=== PATIENT | male | born 1955 | race Caucasian/White ===

== ENCOUNTER 2023-11-18 21:22 | Emergency (ER) | payer MEDICARE, OTHER, SELFPAY ==
[2023-11-18 21:22] VITALS: BP 143/79; PULSE 60; RESP 16; TEMP 36.8; O2SAT 95; BMI 31.7
--- NOTE | 2023-11-18 21:37 | CT_ITS ---
PROCEDURE INFORMATION: Exam: CT Head Without Contrast Exam date and time: 11/18/2023 10:26 PM Age: 68 years old Clinical indication: Injury or trauma; Fall; Other: Confusion TECHNIQUE: Imaging protocol: Computed tomography of the head without contrast. Radiation optimization: All CT scans at this facility use at least one of these dose optimization techniques: automated exposure control; mA and/or kV adjustment per patient size (includes targeted exams where dose is matched to clinical indication); or iterative reconstruction. COMPARISON: No relevant prior studies available. FINDINGS: Limitations: Patient motion. Brain: Age-related volume loss. Decreased attenuation of the supratentorial white matter is likely secondary to chronic microvascular ischemia. There is bilateral frontal lobe and left temporal lobe encephalomalacia, likely posttraumatic. Small chronic right parietal lobe infarct. No acute intracranial hemorrhage. No midline shift or significant intracranial mass effect. Chronic lacunar infarct versus prominent perivascular space at the left lentiform nucleus. Cerebral ventricles: Ventriculomegaly is commensurate for degree of volume loss. Paranasal sinuses: Mild paranasal sinus disease. Mastoid air cells: Mild partial opacification of the bilateral mastoid air cells. Bones: Chronic nasal bone fractures. No acute calvarial fracture. Soft tissues: Unremarkable. IMPRESSION: No acute intracranial abnormality.
--- NOTE | 2023-11-18 21:51 | ED_ITS ---
Discharge Plan Disposition Patient Disposition: Home, Self-Care Chief Complaint: Fall Referrals Follow up/Referrals: Teri Matos APRN [Primary Care Provider] - See instructions Activity Restrictions/Add. Instructions Additional Instructions/Restrictions: You fell and hit your head today, you have a concussion. Fortunately you do not have any bleeding on your brain. You may have some headache over the next few days, please take Tylenol and ibuprofen for this. If your headache is severe or if new or worsening symptoms please do not hesitate to return to the emergency department. Clinical Impressions Clinical Impression: Concussion, Fall Discharge ED Provider: Esdras Alexander General Adult HPI General Chief complaint: Fall Stated complaint: fall Time Seen by Provider: 11/18/23 21:33 Mode of Arrival: EMS Source of Information: Patient and EMS Limitations: No Limitations Description of Symptoms (Recalled from ER Triage Doc. by RN): Pt presents to ED via EMS for an unwitnessed fall. Another resident at [facility] states he lost his footing and may have hit his head. Pt has no visible bumps or bruises. Pt has no complaints at this time. Pt is A&O*3 and that is his basaeline. History of Present Illness HPI narrative: Patient is a 68-year-old male who presents emergency department for evaluation of traumatic injury sustained in a fall. Patient reportedly fell forward after losing his footing. He states he knocked himself out. He has no acute complaints upon arrival. No anticoagulants. Related Data Allergies Allergy/AdvReac Type Severity Reaction Status Date / Time No Known Allergies Allergy Verified 11/18/23 22:35 [facility] Disclaimer: The information contained in this section may have been updated after the patient was seen, as this information can be updated by other users. Social History Smoking Status: Smoker, status unknown alcohol intake: never current occupational status: other Travel in the last 8 weeks: None ROS Obtained: Yes Systems reviewed as appropriate & no additional complaints except as documented Physical Exam General General appearance: alert and in no apparent distress Head Head exam: atraumatic and normocephalic Eye Eye exam: Present PERRL and EOMI ENT ENT exam: Present mucous membranes moist Neck Neck exam: Present normal inspection and full ROM; Absent tenderness Chest Chest inspection: Present normal inspection and symmetric chest wall rise Respiratory Respiratory exam: Present normal lung sounds bilaterally; Absent respiratory distress Cardiovascular Cardiovascular exam: Present regular rate and normal rhythm Abdominal Exam Abdominal exam: Present soft Extremities Exam Extremities exam: Present normal inspection Neurological Exam Neurological exam: Present alert and CN II-XII intact; Absent motor sensory deficit Psychiatric Psychiatric exam: Present normal affect Skin Skin exam: Present warm and dry Medical Decision Making Wilman Inquiry Pt receiving controlled substance: No Vital Signs: 11/18/23 21:22 11/18/23 22:01 Temperature 98.2 F Temperature Source Oral Pulse Rate 57 L Pulse Rate [Left] 60 Respiratory Rate 16 Blood Pressure 115/76 Blood Pressure [Right Arm] 143/79 H Blood Pressure Mean 95 Blood Pressure Mean [Right Arm] 100 02 Sat by Pulse Oximetry 95 95 Oxygen Delivery Method Room Air Room Air Orders (Tests/Meds): ORDERS Category Date Time Status CT head/brain wo con Stat Cat Scan 11/18/23 21:37 Completed Medical Decision Narrative: In summary patient is a 68-year-old male past medical history described above who presents emergency department for evaluation of traumatic injury sustained in a fall. Patient is hemodynamically stable nontoxic-appearing upon arrival, afebrile. No anticoagulants. Clues intracranial hemorrhage, concussion, among others. C-spine cleared clinically per Nexus criteria. Trauma survey will be conducted with noncontrasted CT scan of the head. Based on history and physical exam other CT imaging of the thorax, neck, extremities was considered but will be deferred. CT imaging informally visualized by me, no acute large hemorrhage. Formal read shows no acute cranial abnormality. Upon repeat evaluation patient was well-appearing, ambulatory bedside and is appropriate for discharge at this time. Critical Care Critical Care Time Critical Care Time: No
[2023-11-18 22:01] VITALS: BP 115/76; PULSE 57; O2SAT 95
--- NOTE | 2023-11-18 23:03 | PC.NURSE ---
Ambulated pt, pt walked without any issues. Doctor has been notified
[2023-11-18 23:18] VITALS: BP 157/86; PULSE 54; RESP 16; TEMP 36.6; O2SAT 98
--- NOTE | 2023-11-18 23:19 | PC.NURSE ---
Spoke with staff at [facility] to notify them that this patient is ready ro be discharged.
== END 2023-11-18 23:35 | disposition home or self-care (01) ==
PROVIDERS: Emergency Provider Emergency Medicine; PCP Nurse Practitioner Family
DX: S06.0X0A Concussion without loss of consciousness, initial encounter (principal); W19.XXXA Unspecified fall, initial encounter
CPT/HCPCS: 70450; 99284

== ENCOUNTER 2024-01-10 18:00 | Emergency (ER) | payer MEDICARE, OTHER, SELFPAY ==
[2024-01-10 18:00] VITALS: BP 119/71; PULSE 62; RESP 16; TEMP 36.8; O2SAT 93; BMI 24.4
--- NOTE | 2024-01-10 18:04 | CT_ITS ---
PROCEDURE INFORMATION: Exam: CT Cervical Spine Without Contrast Exam date and time: 01/10/2024 7:04 PM Age: 68 years old Clinical indication: Injury or trauma; Fall TECHNIQUE: Imaging protocol: Computed tomography of the cervical spine without contrast. Radiation optimization: All CT scans at this facility use at least one of these dose optimization techniques: automated exposure control; mA and/or kV adjustment per patient size (includes targeted exams where dose is matched to clinical indication); or iterative reconstruction. COMPARISON: CT HEAD/BRAIN WO CON 01/10/2024 7:04 PM FINDINGS: Limitations: Patient motion. Bones: Nonspecific straightening. Trace retrolisthesis of C2 on C3. Vertebral body heights are preserved. Moderate degenerative change about the dens. Moderate prevertebral osteophytosis. There are facet joint degenerative changes. Multilevel disc space narrowing with degenerative endplate change. No acute cervical spine fracture. Multilevel cervical central and foraminal stenoses including high-grade stenoses. Lungs: Lung apices are normal. Pleural spaces: No visible pneumothorax. Vasculature: Vascular calcification. Soft tissues: Unremarkable. IMPRESSION: No acute osseous abnormality.
--- NOTE | 2024-01-10 18:04 | HMH.EDGENADL ---
Discharge Plan Disposition Patient Disposition: Xfer Other Condition: Good Prescriptions Prescriptions: New sulfamethoxazole-trimethoprim [Bactrim DS] 800-160 mg tablet 1 tab PO BID 5 Days Qty: 10 0RF Referrals Follow up/Referrals: Teri Matos APRN [Primary Care Provider] - See instructions Clinical Impressions Clinical Impression: Acute UTI Fall Qualifiers: Encounter type: initial encounter Qualified Code(s): W19.XXXA - Unspecified fall, initial encounter Print Language Print Language: [place] Island[place] Discharge ED Provider: Jaspreet Pizano General Adult HPI <ONIEL Cabrales - Last Filed: 01/10/24 20:50> General Chief complaint: Fall Stated complaint: Fall Time Seen by Provider: 01/10/24 18:04 History of Present Illness HPI narrative: Patient presents for evaluation of a fall. Patient apparently has fallen twice today for unexplained reasons. He is a resident of [facility] which is an independent living facility. Patient himself is a poor historian and cannot give any meaningful history as to the events that occurred today. I do not know what his mental baseline is. He is not on any blood thinners and denies any chest pain head pain face pain shortness of breath fever chills hemoptysis hematochezia melena nausea vomiting diarrhea. Related Data Previous Rx's ?Medication ?Instructions ?Recorded sulfamethoxazole 800 1 tab PO BID 5 days #10 tabs 01/10/24 mg-trimethoprim 160 mg tablet (Bactrim DS) Allergies Allergy/AdvReac Type Severity Reaction Status Date / Time No Known Allergies Allergy Verified 11/18/23 22:35 PFSH <ONIEL Cabrales - Last Filed: 01/10/24 20:50> [facility] Disclaimer: The information contained in this section may have been updated after the patient was seen, as this information can be updated by other users. Social History (Updated 11/18/23 @ 22:56 by Esdras Alexander MD) Smoking Status: Unknown if ever smoked alcohol intake: never current occupational status: other Travel in the last 8 weeks: None <ONIEL Cabrales - Last Filed: 01/10/24 20:50> ROS Obtained: Yes Systems reviewed as appropriate & no additional complaints except as documented Physical Exam <ONIEL Cabrales - Last Filed: 01/10/24 20:50> General General appearance: alert and in no apparent distress Head Head exam: atraumatic and normal inspection Eye Eye exam: Present normal appearance, PERRL and EOMI ENT ENT exam: Present normal exam and normal oropharynx Neck Neck exam: Present normal inspection and full ROM; Absent tenderness Chest Chest inspection: Present normal inspection and symmetric chest wall rise; Absent tenderness Respiratory Respiratory exam: Present normal lung sounds bilaterally Cardiovascular Cardiovascular exam: Present regular rate and normal rhythm Abdominal Exam Abdominal exam: Present soft and normal bowel sounds; Absent tenderness, guarding or rebound Extremities Exam Extremities exam: Present normal inspection and full ROM Back Exam Back exam: Present normal inspection and full ROM; Absent tenderness Neurological Exam Neurological exam: Present alert; Absent oriented X3 (Patient is responsive but mumbles somewhat incoherent answers) Psychiatric Psychiatric exam: Present normal affect and normal mood Skin Skin exam: Present warm, dry and normal color Medical Decision Making <ONIEL Cabrales - Last Filed: 01/10/24 20:50> Medical Records Medical records reviewed: Yes I reviewed the patient's medical records. Wilman Inquiry Pt receiving controlled substance: No Vital Signs: 01/10/24 18:00 01/10/24 18:26 01/10/24 18:31 Temperature 98.2 F Temperature Source Oral Pulse Rate 59 L Pulse Rate [Radial] 62 Respiratory Rate 16 Blood Pressure 113/63 Blood Pressure [Right Arm] 119/71 Blood Pressure Mean 79 Blood Pressure Mean [Right Arm] 87 Blood Pressure Source [Right Arm] Automatic Cuff Blood Pressure Position [Right Arm]
--- NOTE | 2024-01-10 18:05 | CT_ITS ---
PROCEDURE INFORMATION: Exam: CT Head Without Contrast Exam date and time: 01/10/2024 7:04 PM Age: 68 years old Clinical indication: Injury or trauma; Fall TECHNIQUE: Imaging protocol: Computed tomography of the head without contrast. Radiation optimization: All CT scans at this facility use at least one of these dose optimization techniques: automated exposure control; mA and/or kV adjustment per patient size (includes targeted exams where dose is matched to clinical indication); or iterative reconstruction. COMPARISON: CT HEAD/BRAIN WO CON 11/18/2023 10:26 PM FINDINGS: Brain: Age-related volume loss. Decreased attenuation of the supratentorial white matter is likely secondary to chronic microvascular ischemia. There is encephalomalacia involving the bilateral anterior/inferior frontal lobes and the left temporal lobe, likely posttraumatic. Chronic right parietal lobe infarct. No acute intracranial hemorrhage, midline shift or significant intracranial mass effect. Chronic lacunar infarct at the left basal ganglia. Cerebral ventricles: Ventriculomegaly is commensurate for degree of volume loss. Paranasal sinuses: Mild paranasal sinus disease. Mastoid air cells: Partial opacification of the [id number]-left mastoid air cells. Bones: Unremarkable. No acute fracture. Soft tissues: Unremarkable. IMPRESSION: No acute intracranial abnormality.
[2024-01-10 18:26] VITALS: PULSE 59; O2SAT 91
[2024-01-10 18:31] VITALS: BP 113/63
[2024-01-10 18:32] LABS: Albumin Level 3.9 g/dl (3.5-5.0); Chloride 105 mmol/L (98-107); Potassium 4.2 mmoL/L (3.5-5.1); Sodium 139 mmol/L (136-145)
[2024-01-10 18:34] LABS: Blood Urea Nitrogen 24 mg/dl (9-20); Creatinine Clearance Estimated 62 mL/min (50-200); Estimated Glomerular Filt Rate 55 ml/min (>60); GFR (African American) 66 ML/MIN (>60); Hemoglobin 14.3 g/dL (14.1-18.0); Mean Corpuscular Hemoglobin 29.7 pg (27.0-31.2); Mean Corpuscular Volume 93.6 fl (80-94); Red Blood Count 4.81 M/mm3 (4.60-6.20); White Blood Count 2.9 K/mm3 (4.8-10.8)
[2024-01-10 18:35] LABS: Alanine Aminotransferase 32 U/L (12-78); Albumin/Globulin Ratio 1.6 (1.1-1.8); Alkaline Phosphatase 64 U/L (38-126); Anion Gap 9.2 mEq/L (5-15); Aspartate Amino Transferase 39 U/L (17-59); Bilirubin,Total 0.9 mg/dl (0.2-1.3); Calcium 8.3 mg/dl (8.4-10.2); Carbon Dioxide 29 mmol/L (22.0-30.0); Eosinophils % 0.8 % (0.1-12.0); Globulin 2.5 g/dL (1.3-3.2); Glucose 133 mg/dl (74-100); Lymphocytes % 20.2 % (10-50); Mean Corpuscular HGB Conc 31.7 g/dL (31.8-35.4); Mean Platelet Volume 9.1 fl (7.4-10.4); Monocytes % 10.7 % (1.7-9.3); Neutrophils % 66.8 % (37.0-80.0); Platelet Count 66 K/mm3 (142-424); Red Cell Distribution Width 15.4 % (11.5-17.5); Total Protein,Serum 6.4 g/dl (6.3-8.2)
[2024-01-10 18:36] LABS: Basophils % 0.2 % (0.1-2.0); Lymphocytes # 0.6 K/mm3 (0.7-4.5); Monocytes # 0.3 K/mm3 (0.1-1.0); Neutrophils # 1.9 K/mm3 (1.8-7.8)
--- NOTE | 2024-01-10 18:58 | PC.NURSE ---
Pt out of room with Rad to CT
[2024-01-10 19:56] LABS: Microscopic, Urine URINE MICROSCOPIC (MICROSCOPIC)
[2024-01-10 20:04] LABS: Appearance,Urine CLEAR (Clear); Blood, Urine TRACE-I (Negative); Color,Urine YELLOW (Yellow); Glucose,Urine (UA) 3+ (Negative); Ketones,Urine Negative (Negative); Leukocyte Esterase,Urine Negative (Negative); Nitrate,Urine Negative (Negative); PH,Urine 5.5 (5.0-8.5); Protein,Urine Negative (Negative); Specific Gravity, Urine 1.015 (1.005-1.030)
[2024-01-10 20:07] LABS: Bilirubin,Urine Negative (Negative)
[2024-01-10 20:16] LABS: Bacteria,Urine 1+ /lpf; WBC,Urine Occasional #/hpf (0-3)
[2024-01-10 20:17] LABS: Mucus,Urine 1+ /lpf
--- NOTE | 2024-01-10 21:01 | PC.NURSE ---
Contacted Mariano Motta in regards to this patient being discharged and ready for picker tender
[2024-01-10 21:05] VITALS: BP 125/98; PULSE 61; RESP 18; TEMP 36.6; O2SAT 98
== END 2024-01-10 21:56 | disposition other institution (70) ==
PROVIDERS: Physician Assistant; Emergency Provider Emergency Medicine; PCP Nurse Practitioner Family
DX: U07.1 COVID-19 (principal); N39.0 Urinary tract infection, site not specified; W19.XXXA Unspecified fall, initial encounter
CPT/HCPCS: 70450; 72125; 80053; 81001; 85025; 87635; 96361; 96374; 99285; J0131; J7120

== ENCOUNTER 2024-02-03 18:46 | Emergency (ER) | payer MEDICARE, OTHER, SELFPAY ==
[2024-02-03 18:46] VITALS: BP 151/81; PULSE 56; RESP 17; TEMP 36.6; O2SAT 98; BMI 25.7
--- NOTE | 2024-02-03 18:56 | ED_ITS ---
<Statement entered by Sofia Hong DO - 02/03/24 23:44> I was consulted by the SIERRA, and we discussed the complexity of the problems being addressed. I approved the treatment and management plan for this patient's care in the emergency department, thus performing a substantive portion of the medical decision making. Sofia Hong DO Discharge Plan Disposition Chief Complaint: Recheck/Abnormal Lab/Rx Prescriptions Prescriptions: No Action sulfamethoxazole-trimethoprim [Bactrim DS] 800-160 mg tablet 1 tab PO BID 5 Days Qty: 10 0RF Referrals Follow up/Referrals: Teri Matos APRN [Primary Care Provider] - See instructions Print Language Print Language: Maltese Discharge ED Provider: Sofia Hong General Adult HPI <Kristine Sal (ED), GAUGE INSPECTOR - Last Filed: 02/03/24 20:03> General Chief complaint: Recheck/Abnormal Lab/Rx Stated complaint: O2 sat 63%, pale/clammy Time Seen by Provider: 02/03/24 18:47 History of Present Illness HPI narrative: 68-year-old male presents to the ED via EMS for stated complaint of O2 dropping at the facility he is in to 63%. Once EMS arrived to the facility patient was not hypoxic. His O2 was fine with EMS. Facility called EMS saying he was pale and diaphoretic. Upon EMS arrival patient was stated not to be pale or diaphoretic. Upon arrival to the ED patient looks well, not diaphoretic and states that he feels fine. Patient has no complaint of pain today he denies any recent cough or illness. He does state that he is cold. Patient's O2 is 100% on room air. Related Data Previous Rx's ?Medication ?Instructions ?Recorded sulfamethoxazole 800 1 tab PO BID 5 days #10 tabs 01/10/24 mg-trimethoprim 160 mg tablet (Bactrim DS) Allergies Allergy/AdvReac Type Severity Reaction Status Date / Time No Known Allergies Allergy Verified 11/18/23 22:35 PFSH <Kristine Sal (ED), GAUGE INSPECTOR - Last Filed: 02/03/24 20:03> [facility] Disclaimer: The information contained in this section may have been updated after the patient was seen, as this information can be updated by other users. Social History (Updated 11/18/23 @ 22:56 by Esdras Alexander MD) Smoking Status: Current some day smoker alcohol intake: never current occupational status: other Travel in the last 8 weeks: None <Kristine Messinathaliaolu (ED), GAUGE INSPECTOR - Last Filed: 02/03/24 20:03> ROS Obtained: Yes Systems reviewed as appropriate & no additional complaints except as documented Constitutional Constitutional: Reports system reviewed and no additional complaints, except as documented and Reports as per HPI Physical Exam <Kristine Messinadara (ED), GAUGE INSPECTOR - Last Filed: 02/03/24 20:03> General General appearance: alert and in no apparent distress Head Head exam: atraumatic and normocephalic Eye Eye exam: Present PERRL and EOMI ENT ENT exam: Present normal exam, normal oropharynx and mucous membranes moist Neck Neck exam: Present trachea midline Respiratory Respiratory exam: Present normal lung sounds bilaterally Cardiovascular Cardiovascular exam: Present regular rate, normal rhythm, normal heart sounds, +S1 and +S2 Abdominal Exam Abdominal exam: Present soft and normal bowel sounds Extremities Exam Extremities exam: Present normal inspection, full ROM and normal capillary refill Neurological Exam Neurological exam: Present alert and oriented X3 Skin Skin exam: Present warm, dry and intact Medical Decision Making <Kristine Messinadara (ED), GAUGE INSPECTOR - Last Filed: 02/03/24 20:03> Medical Records Screening: Per USPSTF and CDC recommendations, given the prevalence of disease in our region, it is our hospital?s policy to screen for HIV and viral Hepatitis for all patients aged 18 and over and those with ongoing risk factors. Wilman Inquiry Pt receiving controlled substance: No Wilman was queried for this patient: No Vital Signs: 02/03/24 18:46 02/03/24 19:09 Temperature 97.9 F Temperature Source Oral Pulse Rate [Right] 56 L Respiratory Rate 17 Blood Pressure [Right Arm] 151/81 H Blood Pressure Mean [Right Arm] 104 Blood Pressure Source [Right Arm] Automatic Cuff 02 Sat by Pulse Oximetry 98 99 Oxygen Delivery Method Room Air Room Air Medical Decision Narrative: Insert review patient is a 68-year-old male presenting to the emergency department for evaluation of O2. Patient is hemodynamically stable and nontoxic-appearing upon arrival, afebrile. Differential diagnosis includes a normal well-appearing male versus hypoxic. Workup does not appear to be necessary in this situation as patient has no complaints, his O2 is 100% on room air. Upon repeat evaluation patient is doing well with stable vital signs. EKG showed normal sinus rhythm. Patient safe to be discharged home. <Sofia Hong DO - Last Filed: 02/03/24 20:04> Vital Signs: 02/03/24 18:46 02/03/24 19:09 Temperature 97.9 F Temperature Source Oral Pulse Rate [Right] 56 L Respiratory Rate 17 Blood Pressure [Right Arm] 151/81 H Blood Pressure Mean [Right Arm] 104 Blood Pressure Source [Right Arm] Automatic Cuff 02 Sat by Pulse Oximetry 98 99 Oxygen Delivery Method Room Air Room Air ECG Data Tracing #1: I reviewed this ECG and interpreted as documented below: Sinus bradycardia with a ventricular rate of 52 bpm. Some motion artifact given baseline tremor. No acute ST changes concerning for ischemia. Normal intervals. ECG initial impression date: 02/03/24 ECG initial impression time: 19:57 Critical Care <Kristine Sal (SILVIA), KIM - Last Filed: 02/03/24 20:03> Critical Care Time Critical Care Time: No
[2024-02-03 19:00] VITALS: BP 140/77; PULSE 54; RESP 17; O2SAT 98
[2024-02-03 19:09] VITALS: O2SAT 99
--- NOTE | 2024-02-03 19:29 | ECG_ITS ---
APPROVED REPORT Exam: Resting ECG HR:52 bpm ECG Measurements Heart Rate 52 AXES NV 157 P 63 QRSd 111 QRS -9 QT 417 T 118 QTc 397 Conclusion SINUS BRADYCARDIA LOW QRS VOLTAGE IN PRECORDIAL LEADS [QRS DEFLECTION < 1.0 mV IN CHEST LEADS] LEFT VENTRICULAR HYPERTROPHY AND ST-T CHANGE [VOLTAGE CRITERIA PLUS ST/T ABNORMALITY] Some motion artifact from baseline tremor Electronically signed by : SALAZAR ZELAYA, 02/03/2024 23:57:32
[2024-02-03 19:30] VITALS: BP 109/75; RESP 15
[2024-02-03 20:00] VITALS: BP 122/95; PULSE 51; RESP 14; O2SAT 99
[2024-02-03 20:06] VITALS: BP 122/95; PULSE 52; RESP 12; TEMP 36.8; O2SAT 95
--- NOTE | 2024-02-03 20:06 | PC.NURSE ---
contacted nayana rojas in regards to coming to pick this patient up.
== END 2024-02-03 21:12 | disposition home or self-care (01) ==
PROVIDERS: Emergency Provider Emergency Medicine; PCP Nurse Practitioner Family
DX: R09.02 Hypoxemia (principal); R23.1 Pallor; R61 Generalized hyperhidrosis; F17.200 Nicotine dependence, unspecified, uncomplicated; R00.1 Bradycardia, unspecified
CPT/HCPCS: 93005; 99283

== ENCOUNTER 2024-03-07 20:41 | Inpatient (IN) | payer MEDICARE, OTHER, SELFPAY ==
--- NOTE | 2024-03-07 20:41 | [facility]H.EDGENADL ---
Discharge Plan Disposition Patient Disposition: Admitted Clinical Impressions Clinical Impression: Acute on chronic respiratory failure with hypoxia and hypercapnia Discharge ED Provider: Salo Rodriguez General Adult HPI <ONIEL Cabrales - Last Filed: 03/07/24 23:06> General Chief complaint: Weakness Stated complaint: weakness Time Seen by Provider: 03/07/24 20:44 History of Present Illness HPI narrative: Patient presents from [facility] for weakness and altered mental status. Patient is a poor historian at baseline and is an unreliable historian. At baseline however he is normally ambulating without assistance and conversing freely. He reportedly has not been out of bed today and appears very weak. On arrival to the emergency department patient gives short one-word answers that are appropriate including his name and his date of but no other information. He denies chest pain fever chills hemoptysis hematochezia melena nausea vomiting diarrhea. Of note he is not on oxygen at baseline. We do not have a good medical history on him so I do not know what his functional baseline or medical problems are and we are awaiting data from the longterm at the time my exam Related Data Home Medications ?Medication ?Instructions ?Recorded ?Confirmed aspirin 81 mg chewable tablet 81 mg PO DAILY 03/07/24 03/07/24 atorvastatin 40 mg tablet 40 mg PO HS 03/07/24 03/07/24 buspirone 10 mg tablet 10 mg PO BID 03/07/24 03/07/24 divalproex 500 mg tablet,delayed 500 mg PO TID 03/07/24 03/07/24 release empagliflozin 10 mg tablet 10 mg PO DAILY 03/07/24 03/07/24 (Jardiance) ferrous sulfate 325 mg (65 mg 325 mg PO DAILY 03/07/24 03/07/24 iron) tablet loperamide 2 mg capsule 2 mg PO QID PRN Diarrhea 03/07/24 03/07/24 lumateperone 42 mg capsule 42 mg PO DAILY 03/07/24 03/07/24 (Caplyta) metoprolol succinate 25 mg 25 mg PO HS 03/07/24 03/07/24 tablet,extended release 24 hr paroxetine HCl 20 mg tablet 20 mg PO HS 03/07/24 03/07/24 Allergies Allergy/AdvReac Type Severity Reaction Status Date / Time No Known Allergies Allergy Verified 11/18/23 22:35 PFSH <ONIEL Cabrales - Last Filed: 03/07/24 23:06> FOR[facility]LY [facility] Disclaimer: The information contained in this section may have been updated after the patient was seen, as this information can be updated by other users. Medical History (Updated 03/07/24 @ 22:58 by Angel Luis Schmidt MD) Cognitive impairment BMI 32.0-32.9,adult Chronic hypercapnic respiratory failure Social History (Updated 03/07/24 @ 22:32 by Concepcion Farnsworth RN) Smoking Status: Never smoker alcohol intake: never current occupational status: other Travel in the last 8 weeks: None <ONIEL Cabrales - Last Filed: 03/07/24 23:06> ROS Obtained: Yes Systems reviewed as appropriate & no additional complaints except as documented Physical Exam <ONIEL Cabrales - Last Filed: 03/07/24 23:06> General General appearance: alert and in no apparent distress Respiratory Respiratory exam: Present normal lung sounds bilaterally; Absent respiratory distress Cardiovascular Cardiovascular exam: Present regular rate and normal rhythm Neurological Exam Neurological exam: Absent alert or oriented X3 Medical Decision Making <ONIEL Cabrales - Last Filed: 03/07/24 23:06> Medical Records Medical records reviewed: Yes I reviewed the patient's medical records. Screening: Per USPSTF and CDC recommendations, given the prevalence of disease in our region, it is our hospital?s policy to screen for HIV and viral Hepatitis for all patients aged 18 and over and those with ongoing risk factors. [place] Inquiry Pt receiving controlled substance: No Vital Signs: 03/07/24 20:46 03/07/24 21:57 Temperature 97.6 F 97.6 F Temperature Source Oral Oral Pulse Rate 53 L Pulse Rate [Left Radial] 51 L Respiratory Rate 20 20 Blood Pressure 129/93 H Blood Pressure [Right Arm] 141/90 H Blood Pressure Mean [Right Arm] 107 Blood Pressure Source Automatic Cuff Blood Pressure Source [Right Arm] Automatic Cuff Blood Pressure Position Sitting 02 Sat by Pulse Oximetry 96 Oxygen Delivery Method Room Air BiPAP Lab Data Lab results reviewed: Yes I reviewed the patient's lab results. Lab Results 03/07/24 20:23: WBC 3.0 L, RBC 5.12, Hgb 15.5, Hct 45.9, MCV 89.7, MCH 30.2, MCHC 33.7, RDW 15.1, Plt Count 67 L, MPV 8.2, Neut % (Auto) 67.9, Lymph % (Auto) 22.6, Gordon % (Auto) 8.8, Eos % (Auto) 0.2, Baso % (Auto) 0.5, Neut # (Auto) 2.0, Lymph # (Auto) 0.7, Gordon # (Auto) 0.3, Eos # (Auto) 0.0, Baso # (Auto) 0.0, VBG pH 7.27 L, VBG pCO2 70.7 H, VBG pO2 28.6, VBG HCO3 31.9 H, VBG Total CO2 34.1 H, VBG O2 Saturation 46.0 L, VBG Base Excess 5.0 H, VBG Lactic Acid 2.0, Sodium 146 H, Potassium 4.2, Chloride 108 H, Carbon Dioxide 32 H, Anion Gap 10.2, BUN 23 H, Creatinine 1.00, Estimated Creat Clear 110, Estimated GFR 74, Est GFR ( Amer) 89, Glucose 104 H, Calcium 8.8, Magnesium 1.9, Total Bilirubin 0.7, AST 41, ALT 30, Alkaline Phosphatase 64, Troponin I < 0.01, Total Protein 6.7, Albumin 4.1, Globulin 2.6, Albumin/Globulin Ratio 1.6 03/07/24 21:06: HIV 1&2 Antibody Rapid Nonreactive 03/07/24 20:23 03/07/24 20:23 Orders (Tests/Meds): ED MEDICATIONS Generic Name Dose Route Start Last Admin Trade Name Freq PRN Reason Stop Dose Admin Acetaminophen 1,000 mg 03/07/24 21:54 Acetaminophen 325mg Tab PO 04/06/24 21:53 Q6HP PRN Fever or Mild Pain (1-3) Hydrocodone Bitart/Acetaminophen 1 tab 03/07/24 21:54 Hydrocodone/Apap 5/325 Mg Tablet PO 04/06/24 21:53 Q4HP PRN Moderate Pain (4-6) Albuterol/Ipratropium 3 ml 03/08/24 00:00 Ipratropium/Albuterol 3 Ml Neb IH 04/07/24 00:00 Q6RT [facility] Budesonide 0.5 mg 03/08/24 06:00 Budesonide 0.5mg/2ml Neb IH 04/07/24 05:59 BIDRT [facility] Docusate Sodium 100 mg 03/08/24 09:00 Docusate Sodium 100 Mg Capsule PO 04/07/24 08:59 DAILY [facility] Enoxaparin Sodium 40 mg 03/08/24 09:00 Enoxaparin 40mg/0.4ml Syringe SUBCUT 04/07/24 08:59 DAILY [facility] Morphine Sulfate 4 mg 03/07/24 21:54 Morphine 4mg/Ml Syringe IV 04/06/24 21:53 Q4HP PRN Severe Pain (7-10) Nicotine 21 mg 03/07/24 21:54 Nicotine 21mg/24hr Patch TD 04/06/24 21:53 DAILYP PRN Nicotine Cravings Ondansetron HCl 4 mg 03/07/24 21:54 Ondansetron 4mg/2ml Vial IV 04/06/24 21:53 Q8HP PRN Nausea Pantoprazole Sodium 40 mg 03/08/24 21:00 Pantoprazole 40mg Tablet PO 04/07/24 20:59 HS [facility] Prednisone 40 mg 03/08/24 09:00 Prednisone 20mg Tab PO 03/12/24 09:01 DAILY [facility] Sodium Chloride 10 ml 03/07/24 21:29 03/07/24 21:31 Sodium Chloride 0.9% 10ml Syr (Rad Only) IV 04/06/24 21:28 10 ml NEEDED PRN Administration Maintain IV Site Sodium Chloride 10 ml 03/07/24 21:54 Sodium Chloride 0.9% 10ml Flush Syringe IV 04/06/24 21:53 NEEDED PRN Maintain IV Site Discontinued Medications Generic Name Dose Route Start Last Admin Trade Name Freq PRN Reason Stop Dose Admin Albuterol/Ipratropium 3 ml 03/07/24 20:55 03/07/24 21:45 Ipratropium/Albuterol 3 Ml Neb 03/07/24 20:56 3 ml ONCE ONE Administration Dexamethasone Sodium Phosphate 10 mg 03/07/24 20:55 03/07/24 21:11 Dexamethasone 4mg/Ml 5ml Mdv IV 03/07/24 20:56 10 mg ONCE ONE Administration Iopamidol 80 ml 03/07/24 21:29 03/07/24 21:31 Iopamidol-370 (76%);100ml Bottle IV 03/07/24 21:30 80 ml ONCE ONE Administration Sodium Chloride 50 ml 03/07/24 21:29 03/07/24 21:31 0.9 % Sodium Chloride 50 Ml Vial IV 03/07/24 21:30 50 ml ONCE ONE Administration ORDERS Category Date Time Status CT angio chest PE protocol Stat Cat Scan 03/07/24 20:55 Completed Chest XR -- portable [XR chest portable] Stat Exams 03/07/24 20:42 Completed BNP [NT Pro Brain Natriuretic Pep.] Stat Lab 03/07/24 Completed CBC w/Auto Diff [Complete Blood Count Auto Diff] Stat Lab 03/07/24 20:23 Completed CMP [Comprehensive Metabolic Panel] Stat Lab 03/07/24 20:23 Completed Full Resp Panel w/COVID ([facility]) Routine Lab 03/07/24 21:42 Received HIV (1&2) Antibody Rapid Stat Lab 03/07/24 21:06 Completed Hep C Ab with Reflex to RNA Stat Lab 03/07/24 21:06 Received Magnesium Stat Lab 03/07/24 Completed Magnesium Stat Lab 03/07/24 20:23 Completed Trop I [Troponin I] Stat Lab 03/07/24 20:23 Completed Troponin I Q3H Lab 03/07/24 23:45 Ordered Troponin I Q3H Lab 03/08/24 02:45 Ordered UA [Urinalysis and Microscopic] Stat Lab 03/07/24 20:42 Ordered VBG [Venous Blood Gas] Stat RT 03/07/24 20:23 Completed Medical Decision Narrative: In summary patient is a 69-year-old male who presents to the emergency department for evaluation of weakness and altered mental status. Patient is initially normotensive with a blood pressure 141/90 pulse 51 respiratory rate 20 temperature is 97.6 satting at 96% on 3 L of cannula upon arrival but appears lethargic. Physical exam shows dry mucosa normal heart sounds no reproducible chest pain on palpation benign abdominal exam. Differential diagnosis includes pneumonia versus other occult bacterial viral infection, ACS etc. Initial workup will be conducted with hematologic labs CT scan chest PE protocol VBG twelve-lead EKG. Initial interventions include Tylenol Toradol. Initial workup reviewed by me shows that his VBG is significant for acidosis hypercarbia and hypoxemia and my informal interpretation of his CT scan PE protocol did not show any evidence of thrombus or consolidation or edema or effusion. Upon repeat evaluation patient remains lethargic and given his findings patient was placed on BiPAP.. Given this I had interact discussion with hospital medicine regarding patient management and he will be admitted for further evaluation and care. <Salo Rodriguez MD - Last Filed: 03/07/24 23:12> Vital Signs: 03/07/24 20:46 03/07/24 21:57 Temperature 97.6 F 97.6 F Temperature Source Oral Oral Pulse Rate 53 L Pulse Rate [Left Radial] 51 L Respiratory Rate 20 20 Blood Pressure 129/93 H Blood Pressure [Right Arm] 141/90 H Blood Pressure Mean [Right Arm] 107 Blood Pressure Source Automatic Cuff Blood Pressure Source [Right Arm] Automatic Cuff Blood Pressure Position Sitting 02 Sat by Pulse Oximetry 96 Oxygen Delivery Method Room Air BiPAP Lab Data Lab Results 03/07/24 20:23: WBC 3.0 L, RBC 5.12, Hgb 15.5, Hct 45.9, MCV 89.7, MCH 30.2, MCHC 33.7, RDW 15.1, Plt Count 67 L, MPV 8.2, Neut % (Auto) 67.9, Lymph % (Auto) 22.6, Gordon % (Auto) 8.8, Eos % (Auto) 0.2, Baso % (Auto) 0.5, Neut # (Auto) 2.0, Lymph # (Auto) 0.7, Gordon # (Auto) 0.3, Eos # (Auto) 0.0, Baso # (Auto) 0.0, VBG pH 7.27 L, VBG pCO2 70.7 H, VBG pO2 28.6, VBG HCO3 31.9 H, VBG Total CO2 34.1 H, VBG O2 Saturation 46.0 L, VBG Base Excess 5.0 H, VBG Lactic Acid 2.0, Sodium 146 H, Potassium 4.2, Chloride 108 H, Carbon Dioxide 32 H, Anion Gap 10.2, BUN 23 H, Creatinine 1.00, Estimated Creat Clear 110, Estimated GFR 74, Est GFR ( Amer) 89, Glucose 104 H, Calcium 8.8, Magnesium 1.9, Total Bilirubin 0.7, AST 41, ALT 30, Alkaline Phosphatase 64, Troponin I < 0.01, Total Protein 6.7, Albumin 4.1, Globulin 2.6, Albumin/Globulin Ratio 1.6 03/07/24 21:06: HIV 1&2 Antibody Rapid Nonreactive Orders (Tests/Meds): ED MEDICATIONS Generic Name Dose Route Start Last Admin Trade Name Freq PRN Reason Stop Dose Admin Acetaminophen 1,000 mg 03/07/24 21:54 Acetaminophen 325mg Tab PO 04/06/24 21:53 Q6HP PRN Fever or Mild Pain (1-3) Hydrocodone Bitart/Acetaminophen 1 tab 03/07/24 21:54 Hydrocodone/Apap 5/325 Mg Tablet PO 04/06/24 21:53 Q4HP PRN Moderate Pain (4-6) Albuterol/Ipratropium 3 ml 03/08/24 00:00 Ipratropium/Albuterol 3 Ml [facility] 04/07/24 00:00 Q6RT [facility] Budesonide 0.5 mg 03/08/24 06:00 Budesonide 0.5mg/2ml Neb 04/07/24 05:59 BIDRT [facility] Docusate Sodium 100 mg 03/08/24 09:00 Docusate Sodium 100 Mg Capsule PO 04/07/24 08:59 DAILY [facility] Enoxaparin Sodium 40 mg 03/08/24 09:00 Enoxaparin 40mg/0.4ml Syringe SUBCUT 04/07/24 08:59 DAILY [facility] Morphine Sulfate 4 mg 03/07/24 21:54 Morphine 4mg/Ml Syringe IV 04/06/24 21:53 Q4HP PRN Severe Pain (7-10) Nicotine 21 mg 03/07/24 21:54 Nicotine 21mg/24hr Patch TD 04/06/24 21:53 DAILYP PRN Nicotine Cravings Ondansetron HCl 4 mg 03/07/24 21:54 Ondansetron 4mg/2ml Vial IV 04/06/24 21:53 Q8HP PRN Nausea Pantoprazole Sodium 40 mg 03/08/24 21:00 Pantoprazole 40mg Tablet PO 04/07/24 20:59 HS [facility] Prednisone 40 mg 03/08/24 09:00 Prednisone 20mg Tab PO 03/12/24 09:01 DAILY [facility] Sodium Chloride 10 ml 03/07/24 21:29 03/07/24 21:31 Sodium Chloride 0.9% 10ml Syr (Rad Only) IV 04/06/24 21:28 10 ml NEEDED PRN Administration Maintain IV Site Sodium Chloride 10 ml 03/07/24 21:54 Sodium Chloride 0.9% 10ml Flush Syringe IV 04/06/24 21:53 NEEDED PRN Maintain IV Site Discontinued Medications Generic Name Dose Route Start Last Admin Trade Name Freq PRN Reason Stop Dose Admin Albuterol/Ipratropium 3 ml 03/07/24 20:55 03/07/24 21:45 Ipratropium/Albuterol 3 Ml Neb IH 03/07/24 20:56 3 ml ONCE ONE Administration Dexamethasone Sodium Phosphate 10 mg 03/07/24 20:55 03/07/24 21:11 Dexamethasone 4mg/Ml 5ml Mdv IV 03/07/24 20:56 10 mg ONCE ONE Administration Iopamidol 80 ml 03/07/24 21:29 03/07/24 21:31 Iopamidol-370 (76%);100ml Bottle IV 03/07/24 21:30 80 ml ONCE ONE Administration Sodium Chloride 50 ml 03/07/24 21:29 03/07/24 21:31 0.9 % Sodium Chloride 50 Ml Vial IV 03/07/24 21:30 50 ml ONCE ONE Administration ORDERS Category Date Time Status CT angio chest PE protocol Stat Cat Scan 03/07/24 20:55 Completed Chest XR -- portable [XR chest portable] Stat Exams 03/07/24 20:42 Completed BNP [NT Pro Brain Natriuretic Pep.] Stat Lab 03/07/24 Completed CBC w/Auto Diff [Complete Blood Count Auto Diff] Stat Lab 03/07/24 20:23 Completed CMP [Comprehensive Metabolic Panel] Stat Lab 03/07/24 20:23 Completed Full Resp Panel w/COVID ([facility]) Routine Lab 03/07/24 21:42 Received HIV (1&2) Antibody Rapid Stat Lab 03/07/24 21:06 Completed Hep C Ab with Reflex to RNA Stat Lab 03/07/24 21:06 Received Magnesium Stat Lab 03/07/24 Completed Magnesium Stat Lab 03/07/24 20:23 Completed Trop I [Troponin I] Stat Lab 03/07/24 20:23 Completed Troponin I Q3H Lab 03/07/24 23:45 Ordered Troponin I Q3H Lab 03/08/24 02:45 Ordered UA [Urinalysis and Microscopic] Stat Lab 03/07/24 20:42 Ordered VBG [Venous Blood Gas] Stat RT 03/07/24 20:23 Completed Medical Decision Narrative: In summary patient is a 69-year-old male who presents to the emergency department for evaluation of weakness and altered mental status. Patient is initially normotensive with a blood pressure 141/90 pulse 51 respiratory rate 20 temperature is 97.6 satting at 96% on 3 L of cannula upon arrival but appears lethargic. Physical exam shows dry mucosa normal heart sounds no reproducible chest pain on palpation benign abdominal exam. Differential diagnosis includes pneumonia versus other occult bacterial viral infection, ACS etc. Initial workup will be conducted with hematologic labs CT scan chest PE protocol VBG twelve-lead EKG. Initial interventions include Tylenol Toradol. Initial workup reviewed by me shows that his VBG is significant for acidosis hypercarbia and hypoxemia and my informal interpretation of his CT scan PE protocol did not show any evidence of thrombus or consolidation or edema or effusion. Upon repeat evaluation patient remains lethargic and given his findings patient was placed on BiPAP.. Given this I had interact discussion with hospital medicine regarding patient management and he will be admitted for further evaluation and care. I was consulted by the [facility], and we discussed the complexity of the problems being addressed.I approved the treatment and management plan for this patient?s care in the Emergency Department, thus performing a substantive portion of the medical decision making.Signed, Salo Rodriguez MD Critical Care <ONIEL Cabrales - Last Filed: 03/07/24 23:06> Critical Care Time Critical Care Time: No
--- NOTE | 2024-03-07 20:42 | XR_ITS ---
PROCEDURE INFORMATION: Exam: XR Chest Exam date and time: 03/07/2024 8:44 PM Age: 69 years old Clinical indication: Dyspnea; Additional info: Hypoxia, weakness TECHNIQUE: Imaging protocol: Radiologic exam of the chest. Views: 1 view. COMPARISON: CT CERVICAL SPINE WO CON 01/10/2024 7:04 PM FINDINGS: Lungs: Unremarkable. No consolidation. Pleural spaces: Unremarkable. No pleural effusion. No pneumothorax. Heart/Mediastinum: Unremarkable. No cardiomegaly. Bones/joints: Unremarkable. IMPRESSION: No acute findings.
[2024-03-07 20:46] VITALS: BP 141/90; PULSE 51; RESP 20; TEMP 36.4; O2SAT 96; BMI 32.1
[2024-03-07 20:51] LABS: VBG HCO3 31.9 mmol/L (23-30); VBG PCO2 70.7 mmol/L (35-51); VBG PH 7.27 mmol/L (7.31-7.41); VBG PO2 28.6 mmol/L (28-40); VBG Total CO2 34.1 mmol/L (23-27)
[2024-03-07 20:53] LABS: Basophils % 0.5 % (0.1-2.0); Eosinophils % 0.2 % (0.1-12.0); Hematocrit 45.9 % (42.0-52.0); Hemoglobin 15.5 g/dL (14.1-18.0); Lymphocytes # 0.7 K/mm3 (0.7-4.5); Lymphocytes % 22.6 % (10-50); Mean Corpuscular HGB Conc 33.7 g/dL (31.8-35.4); Mean Corpuscular Hemoglobin 30.2 pg (27.0-31.2); Mean Corpuscular Volume 89.7 fl (80-94); Mean Platelet Volume 8.2 fl (7.4-10.4); Monocytes # 0.3 K/mm3 (0.1-1.0); Monocytes % 8.8 % (1.7-9.3); Neutrophils % 67.9 % (37.0-80.0); Platelet Count 67 K/mm3 (142-424); Red Blood Count 5.12 M/mm3 (4.60-6.20); Red Cell Distribution Width 15.1 % (11.5-17.5)
--- NOTE | 2024-03-07 20:55 | CT_ITS ---
PROCEDURE INFORMATION: Exam: CTA Chest With Contrast Exam date and time: 03/07/2024 9:30 PM Age: 69 years old Clinical indication: Other: Acute hypoxia; Additional info: Acute hypoxemia TECHNIQUE: Imaging protocol: Computed tomographic angiography of the chest with contrast. Exam focused on the arteries. 3D rendering (Not supervised by radiologist): MIP and/or 3D reconstructed images were created by the technologist. Radiation optimization: All CT scans at this facility use at least one of these dose optimization techniques: automated exposure control; mA and/or kV adjustment per patient size (includes targeted exams where dose is matched to clinical indication); or iterative reconstruction. Contrast material: ISOVUE; Contrast volume: 80 ml; Contrast route: INTRAVENOUS (IV); COMPARISON: CR XR CHEST PORTABLE 03/07/2024 8:44 PM FINDINGS: Pulmonary arteries: Normal. No pulmonary emboli. Aorta: Unremarkable. No aortic aneurysm. No aortic dissection. Lungs: Unremarkable. No consolidation. No masses. Pleural spaces: Unremarkable. No pneumothorax. No pleural effusion. Heart: Unremarkable. No cardiomegaly. No pericardial effusion. Lymph nodes: Unremarkable. No enlarged lymph nodes. Bones/joints: Unremarkable. No acute fracture. Soft tissues: Unremarkable. IMPRESSION: No acute findings.
[2024-03-07 21:06] LABS: Alanine Aminotransferase 30 U/L (12-78); Albumin Level 4.1 g/dl (3.5-5.0); Albumin/Globulin Ratio 1.6 (1.1-1.8); Alkaline Phosphatase 64 U/L (38-126); Anion Gap 10.2 mEq/L (5-15); Aspartate Amino Transferase 41 U/L (17-59); Bilirubin,Total 0.7 mg/dl (0.2-1.3); Blood Urea Nitrogen 23 mg/dl (9-20); Calcium 8.8 mg/dl (8.4-10.2); Carbon Dioxide 32 mmol/L (22.0-30.0); Chloride 108 mmol/L (98-107); Creatinine Clearance Estimated 110 mL/min (50-200); Estimated Glomerular Filt Rate 74 ml/min (>60); GFR (African American) 89 ML/MIN (>60); Globulin 2.6 g/dL (1.3-3.2); Glucose 104 mg/dl (74-100); Magnesium 1.9 mg/dl (1.6-2.3); Potassium 4.2 mmoL/L (3.5-5.1); Sodium 146 mmol/L (136-145); Total Protein,Serum 6.7 g/dl (6.3-8.2)
[2024-03-07] MEDS: DEXAMETHASONE 4MG/ML 5ML MDV 10 MG IV (21:11)
[2024-03-07 21:23] LABS: Troponin I < 0.01 ng/ml (0.00-0.034)
[2024-03-07 21:25] LABS: Magnesium 1.9 mg/dl (1.6-2.3)
[2024-03-07] MEDS: IOPAMIDOL-370 (76%);100ML BOTTLE 80 ML IV (21:31)
[2024-03-07] MEDS: SODIUM CHLORIDE 0.9% 10ML SYR (RAD ONLY) 10 ML IV (21:31)
[2024-03-07] MEDS: 0.9 % SODIUM CHLORIDE 50 ML VIAL IV (21:31)
[2024-03-07 21:35] LABS: NT Pro Brain Natriuretic Pep. 1590 pg/mL (0-125)
[2024-03-07] MEDS: IPRATROPIUM/ALBUTEROL 3 ML NEB IH ×2 (21:45→23:23)
[2024-03-07 21:46] LABS: Adenovirus,PCR Not Detected (NotDetected); Bordetella Pertussis Not Detected (NotDetected); Chlamydophila Pneumoniae, PCR Not Detected (NotDetected); Coronavirus 19, PCR Not Detected (NotDetected); Coronavirus 229E Not Detected (NotDetected); Coronavirus NL63 Not Detected (NotDetected); Coronavirus OC43 Not Detected (NotDetected); Coronovirus HKU1,PCR Not Detected (NotDetected); Human Metapneumovirus Not Detected (NotDetected); Influenza A, PCR Not Detected (NotDetected); Influenza AH1, 2009 Not Detected (NotDetected); Influenza AH1, PCR Not Detected (NotDetected); Influenza AH3,PCR Not Detected (NotDetected); Influenza B, PCR Not Detected (NotDetected); Mycoplasma Pneumoniae, PCR Not Detected (NotDetected); Parainfluenza 1, PCR Not Detected (NotDetected); Parainfluenza 2, PCR Not Detected (NotDetected); Parainfluenza 3, PCR Not Detected (NotDetected); Parainfluenza 4, PCR Not Detected (NotDetected); Respiratory Syncytial Virus Not Detected (NotDetected); Rhinovirus/Enterovirus Not Detected (NotDetected)
[2024-03-07 21:54] VITALS: RESP 18; RESP 25
--- NOTE | 2024-03-07 21:55 | PC.NURSE ---
report called to Roxanna CHRIS
[2024-03-07 21:57] VITALS: BP 129/93; PULSE 53; RESP 20; TEMP 36.4; O2SAT 100
--- NOTE | 2024-03-07 21:59 | EXP.HP ---
History of Present Illness *Admission Date: 03/07/24 *Reason for visit:: Dyspnea *History of present illness: This is a 69-year-old male that presents to [facility] emergency department from his independent [facility] for concerns of acute dyspnea. The patient has chronic cognitive impairment. A VBG in the ED identified a pH of 7.27 with pCO2 of 71 and he required NIPPV therapy to improve his dyspnea and interactions. A CTA of the chest identified no acute findings. [facility] Medical History (Updated 03/07/24 @ 22:58 by Angel Luis Schmidt MD) Cognitive impairment BMI 32.0-32.9,adult Chronic hypercapnic respiratory failure Social History (Updated 03/07/24 @ 22:32 by Concepcion Farnsworth RN) Smoking Status: Never smoker alcohol intake: never current occupational status: other Travel in the last 8 weeks: None Review of Systems Review of Systems Review of systems:: unable to obtain Meds Home Medications and Allergies Home Medications ?Medication ?Instructions ?Recorded ?Confirmed ?Type aspirin 81 mg chewable tablet 81 mg PO DAILY 03/07/24 03/07/24 History atorvastatin 40 mg tablet 40 mg PO HS 03/07/24 03/07/24 History buspirone 10 mg tablet 10 mg PO BID 03/07/24 03/07/24 History divalproex 500 mg tablet,delayed 500 mg PO TID 03/07/24 03/07/24 History release empagliflozin 10 mg tablet 10 mg PO DAILY 03/07/24 03/07/24 History (Jardiance) ferrous sulfate 325 mg (65 mg 325 mg PO DAILY 03/07/24 03/07/24 History iron) tablet loperamide 2 mg capsule 2 mg PO QID PRN Diarrhea 03/07/24 03/07/24 History lumateperone 42 mg capsule 42 mg PO DAILY 03/07/24 03/07/24 History (Caplyta) metoprolol succinate 25 mg 25 mg PO HS 03/07/24 03/07/24 History tablet,extended release 24 hr paroxetine HCl 20 mg tablet 20 mg PO HS 03/07/24 03/07/24 History New Prescriptions to Start Prescriptions: Allergies Allergy/AdvReac Type Severity Reaction Status Date / Time No Known Allergies Allergy Verified 11/18/23 22:35 Exam Data for Last 24 hours Vital signs and Labs for Last 24 Hours: Temp Pulse Resp BP Pulse Ox O2 Del Method FiO2 97.6 F 53 L 20 129/93 H 96 BiPAP 25 03/07/24 21:57 03/07/24 21:57 03/07/24 21:57 03/07/24 21:57 03/07/24 20:46 03/07/24 21:57 03/07/24 21:54 Laboratory Results - last 24 hr 03/07/24 20:23: WBC 3.0 L, RBC 5.12, Hgb 15.5, Hct 45.9, MCV 89.7, MCH 30.2, MCHC 33.7, RDW 15.1, Plt Count 67 L, MPV 8.2, Neut % (Auto) 67.9, Lymph % (Auto) 22.6, Fannin % (Auto) 8.8, Eos % (Auto) 0.2, Baso % (Auto) 0.5, Neut # (Auto) 2.0, Lymph # (Auto) 0.7, Fannin # (Auto) 0.3, Eos # (Auto) 0.0, Baso # (Auto) 0.0, VBG pH 7.27 L, VBG pCO2 70.7 H, VBG pO2 28.6, VBG HCO3 31.9 H, VBG Total CO2 34.1 H, VBG O2 Saturation 46.0 L, VBG Base Excess 5.0 H, VBG Lactic Acid 2.0, Sodium 146 H, Potassium 4.2, Chloride 108 H, Carbon Dioxide 32 H, Anion Gap 10.2, BUN 23 H, Creatinine 1.00, Estimated Creat Clear 110, Estimated GFR 74, Est GFR ( Amer) 89, Glucose 104 H, Calcium 8.8, Magnesium 1.9, Total Bilirubin 0.7, AST 41, ALT 30, Alkaline Phosphatase 64, Troponin I < 0.01, Total Protein 6.7, Albumin 4.1, Globulin 2.6, Albumin/Globulin Ratio 1.6 03/07/24 : Magnesium 1.9, NT-Pro-B Natriuret Pep 1590 H I & O for Last 24 hours: Intake & Output 03/04/24 03/05/24 03/06/24 03/07/24 23:59 23:59 23:59 23:59 Weight 113.398 kg Constitutional Constitutional: no acute distress, obese, chronically ill appearing and cooperative *Routine HEENT Exam Head: Present normocephalic Eye: Present EOMI and PERRL ENT: Present mucous membranes moist *Routine Neck Exam Neck: Present supple and trachea midline; Absent lymphadenopathy *Routine Respiratory Exam Respiratory: Present rhonchi, wheezes, normal respiratory effort and symmetric chest movement *Routine Cardiovascular Exam Cardiovascular: Present RRR *Routine Abdominal Exam Abdominal: Present soft and normoactive bowel sounds; Absent tenderness *Routine Rectal Exam Rectal:: deferred *Routine Genitalia Exam Genitalia:: deferred *Routine Extremities Exam Extremities: Present edema and full ROM *Routine Skin Exam Skin: Present warm; Absent rash *Routine Neurological Exam Neurological: Present alert, oriented X3 and moving all extremities; Absent sensory deficit or motor deficit Routine Psychiatric Exam Psychiatric: Present cooperative Assessment and Plan *Assessment and plan (1) Acute on chronic respiratory failure with hypoxia and hypercapnia: Status: Acute Category: Medical Code(s): J96.21 - Acute and chronic respiratory failure with hypoxia; J96.22 - Acute and chronic respiratory failure with hypercapnia (2) Cognitive impairment: Status: Acute Category: Medical Code(s): R41.89 - Other symptoms and signs involving cognitive functions and awareness Plan This is a 69-year-old male that presented from [facility] with concerns of dyspnea and altered sensorium. He was identified with hypercapnia on his ED VBG. Problems addressed as follows: Acute on chronic respiratory failure with hypercapnia and hypoxia Pulse oximetry monitoring Oxygen therapy to maintain appropriate oxygen saturations Currently requiring 2 L via nasal cannula NIPPV therapy ED VBG with pCO2 71 BNP 1590 Chest x-ray with no acute disease CTA chest with no acute disease Trending labs and inflammatory markers Bina/Ethan inhalation therapy ICS therapy P.o. prednisone PPI therapy Cognitive impairment Routine nursing interaction Reconciling home meds The length of stay for this patient will be 2 midnights or greater due to above diagnoses.
[2024-03-07 22:11] LABS: HIV (1&2) Antibody Rapid NONREACTIVE (NONREACTIVE)
[2024-03-07 22:20] VITALS: BP 126/70; PULSE 47; RESP 18; TEMP 36.7; O2SAT 97; BMI 30.6
--- NOTE | 2024-03-07 22:22 | PC.NURSE ---
Addendum entered by Yaritza Beavers 03/07/24 23:19: Patient arrived to floor via stretcher from ED at 22:18. Original Note: Patient arrived to floor via stretcher from ED at 21:18.
[2024-03-07 23:30] VITALS: PULSE 48; PULSE 49
[2024-03-07 23:59] LABS: Lactate Venous 1.7 mmol/L (0.4-2.0); VBG Base Excess 1.3 mmol/L (-2.4-2.3); VBG HCO3 27.5 mmol/L (23-30); VBG Oxygen Saturation 67.2 % (50-70); VBG PCO2 55.5 mmol/L (35-51); VBG PH 7.31 mmol/L (7.31-7.41); VBG PO2 36.7 mmol/L (28-40); VBG Total CO2 29.2 mmol/L (23-27)
[2024-03-08] VITALS (12 sets, daily range): BP systolic 97–161; BP diastolic 61–92; PULSE 45–83; RESP 16–20; TEMP 35.8–37; O2SAT 46–100; BMI 30.6
[2024-03-08 00:22] LABS: Troponin I < 0.01 ng/ml (0.00-0.034)
[2024-03-08 02:34] LABS: Troponin I < 0.01 ng/ml (0.00-0.034)
[2024-03-08 04:30] LABS: Microscopic, Urine URINE MICROSCOPIC (MICROSCOPIC)
[2024-03-08 04:34] LABS: Appearance,Urine CLEAR (Clear); Bilirubin,Urine Negative (Negative); Blood, Urine Negative (Negative); Color,Urine YELLOW (Yellow); Glucose,Urine (UA) 3+ (Negative); Ketones,Urine Negative (Negative); Leukocyte Esterase,Urine Negative (Negative); Nitrate,Urine Negative (Negative); PH,Urine 6.5 (5.0-8.5); Protein,Urine Negative (Negative); Urobilinogen,Urine 0.2 EU/dl (0.2)
[2024-03-08 04:49] LABS: Bacteria,Urine 1+ /lpf; Squamous Epithelial Cell,Urine Occasional #/hpf (0-5)
--- NOTE | 2024-03-08 06:00 | CA_ITS ---
APPROVED REPORT EXAM: Comprehensive 2D, Doppler, and color-flow Echocardiogram Iron Carrier: Yvette Rudolph RT(R) Ht: 6 ft 2 in Wt: 250lbs BSA: 2.39 BP: 129/93 mmHg Indications: Resp failure, cognitive impairment. Limited scan Echo Enhancing Agent Indication: Endocardial border delineation Agent(s) / Amount(s) Used: Definity 2 cc 2D Dimensions EF AP4 49.80 % GL Strain -17.7 % LV Diastology E Decel Time 261 (160-240 msec) E/A Ratio 1.2 MED E' 5.9 (>= 7 cm/sec) E'/MED E' Ratio 10.68 (<= 14) LAT E' 7.0 (>= 10 cm/sec) E/LAT E' Ratio 9.00 (<= 14) Mitral Valve MV E Max Markus. 63.0 (40-130 cm/s) MV A Velocity 52.0 (40-130 cm/s) E/A Ratio 1.22 MV Decel. Time 261 (160-240 ms) Tricuspid Valve TR P. Velocity 226.00 cm/s RAP Estimate 10.00 mmHg RVSP 30.50 mmHg Left Ventricle The left ventricle is normal size. The left ventricular systolic function is low normal. . There is increased LV wall thickness. There is no obvious regional wall motion abnormality. However, evaluation is limited due to technically difficult study. Diastolic function is indeterminate. No left ventricle thrombus noted on this study. LVEF is 50%. Right Ventricle The right ventricle is not well-visualized, but grossly appears mildly dilated with normal RV function. Atria The left atrium size is normal. The right atrium size is normal. There is no Doppler evidence of interatrial shunt. Aortic Valve The aortic valve leaflets are not well-visualized. There is no aortic valvular stenosis. No aortic regurgitation is present. Mitral Valve The mitral valve is normal in structure. No evidence of mitral valve stenosis. Mild mitral regurgitation. Tricuspid Valve The tricuspid valve leaflets are thin and pliable. Mild tricuspid regurgitation. RVSP is 22 mmHg plus RA pressure. Pulmonic Valve The pulmonic valve is not well-visualized. Great Vessels The aortic root is not well-visualized. The IVC is not well-visualized. Pericardium There is no pericardial effusion. Other Information Study Quality: Technically Difficult Conclusion Technically difficult study due to poor acoustic windows. Low normal LV systolic function (LVEF 50%). RV not well-visualized, but grossly appears mildly dilated with normal RV function. Mild TR, mild MR. PV and AV leaflets are not well-visualized. Electronically signed by : Tammy Ronquillo MD 03/09/2024 22:16:40
[2024-03-08] MEDS: IPRATROPIUM/ALBUTEROL 3 ML NEB IH ×3 (06:31→18:05)
[2024-03-08] MEDS: BUDESONIDE 0.5MG/2ML NEB 0.5 MG IH ×2 (06:32→18:05)
[2024-03-08 06:51] LABS: Basophils % 0.3 % (0.1-2.0); Eosinophils % 0.2 % (0.1-12.0); Hematocrit 45.9 % (42.0-52.0); Hemoglobin 14.9 g/dL (14.1-18.0); Lymphocytes # 0.4 K/mm3 (0.7-4.5); Lymphocytes % 12.6 % (10-50); Mean Corpuscular HGB Conc 32.5 g/dL (31.8-35.4); Mean Corpuscular Hemoglobin 29.5 pg (27.0-31.2); Mean Corpuscular Volume 90.6 fl (80-94); Mean Platelet Volume 8.4 fl (7.4-10.4); Monocytes # 0.1 K/mm3 (0.1-1.0); Monocytes % 3.5 % (1.7-9.3); Neutrophils # 2.6 K/mm3 (1.8-7.8); Neutrophils % 83.4 % (37.0-80.0); Platelet Count 68 K/mm3 (142-424); Red Blood Count 5.07 M/mm3 (4.60-6.20); Red Cell Distribution Width 15.1 % (11.5-17.5); White Blood Count 3.2 K/mm3 (4.8-10.8)
[2024-03-08 07:02] LABS: Chloride 109 mmol/L (98-107); Potassium 4.1 mmoL/L (3.5-5.1); Sodium 144 mmol/L (136-145)
[2024-03-08 07:05] LABS: Anion Gap 11.1 mEq/L (5-15); Blood Urea Nitrogen 23 mg/dl (9-20); Calcium 8.9 mg/dl (8.4-10.2); Carbon Dioxide 28 mmol/L (22.0-30.0); Creatinine Clearance Estimated 107 mL/min (50-200); Estimated Glomerular Filt Rate 84 ml/min (>60); GFR (African American) 101 ML/MIN (>60); Glucose 145 mg/dl (74-100)
[2024-03-08 07:07] LABS: VBG Base Excess 1.8 mmol/L (-2.4-2.3); VBG HCO3 26.1 mmol/L (23-30); VBG Oxygen Saturation 99.1 % (50-70); VBG PCO2 39.8 mmol/L (35-51); VBG PH 7.43 mmol/L (7.31-7.41); VBG PO2 152.1 mmol/L (28-40); VBG Total CO2 27.3 mmol/L (23-27)
[2024-03-08] MEDS: DEFINITY US ECHO CONTRAST 2ML INJ 2 MG IV (07:50)
--- NOTE | 2024-03-08 07:53 | HMH.PHAINT1 ---
Pharmacy Intervention Comments: Home medication list verified using MAR FROM [facility]
--- NOTE | 2024-03-08 08:04 | US_ITS ---
PROCEDURE INFORMATION: Exam: US Abdomen, Limited; Right Upper Quadrant Exam date and time: 03/08/2024 8:28 AM Age: 68 years old Clinical indication: Screening exam; Other: Eval liver; Additional info: Eval liver and portal HTN TECHNIQUE: Imaging protocol: Real time ultrasound of the abdomen with image documentation. Limited exam focused on the right upper quadrant. COMPARISON: CT ANGIO CHEST PE PROTOCOL 03/07/2024 9:30 PM FINDINGS: Liver: [id number] hepatic steatosis. Heterogeneous echotexture of the liver. No focal lesion. No distinct surface nodularity. Gallbladder: Unremarkable gallbladder. No wall thickening or pericholecystic fluid. Biliary ducts: Normal. CBD measures 2 mm in diameter. . Pancreas: The pancreas is not well seen. Right kidney: Right kidney measures 9.5 cm craniocaudal. No appreciable calculi or obstruction. Portal venous: The portal vein measures 1.2 cm in diameter. Expected hepatopetal flow. IMPRESSION: 1. Mild hepatic steatosis with heterogeneous echotexture of the liver. No distinct surface nodularity. No focal lesion. 2. Portal vein is at the upper limits of normal (1.2 cm in diameter). 3. No appreciable cholelithiasis or cholecystitis.
--- NOTE | 2024-03-08 08:20 | ECG_ITS ---
APPROVED REPORT Exam: Resting ECG HR:50 bpm ECG Measurements Heart Rate 50 AXES WY 166 P 61 QRSd 102 QRS -21 QT 450 T 149 QTc 424 Conclusion SINUS BRADYCARDIA ANTEROLATERAL MYOCARDIAL INFARCTION , PROBABLY RECENT [40+ ms Q WAVE IN I/aVL/V3-V6] ACUTE [place] UNCONFIRMED REPORT Electronically signed by : Narayan Ambrocio MD 03/11/2024 08:40:09
[2024-03-08 08:58] LABS: Troponin I < 0.01 ng/ml (0.00-0.034)
[2024-03-08] MEDS: predniSONE 20MG TAB 40 MG PO (09:20)
[2024-03-08] MEDS: DOCUSATE SODIUM 100 MG CAPSULE PO (09:20)
[2024-03-08 09:31] LABS: Free T4 (Free Thyroxine) 0.97 ng/dl (0.78-2.19)
[2024-03-08 09:46] LABS: Thyroid Stimulating Hormone 2.61 uIU/mL (0.465-4.68)
--- NOTE | 2024-03-08 10:00 | P.CONCA_ITS ---
History of Present Illness History of Present Illness Consult date: 03/08/24 Requesting physician: Jr Barahona Chief complaint: SOA History of present illness: This is a 68-year-old gentleman who presented to [facility] from [facility] due to shortness of breath. The patient has chronic cognitive impairment. He was admitted for acute on chronic respiratory failure. In the emergency department he had a pH of 7.27 and required NIPPV therapy to improve his shortness of breath. This morning he states that he currently has no shortness of breath. He denies any chest pain or pressure. He denies any lower extremity edema. He denies any fever, chills, nausea, vomiting, diarrhea, PND orthopnea. The patient does have chronic cognitive impairment so I am not sure how accurate his review of systems is. He really is unable to give me any history and I have to obtain his history from past medical records. CTA of the chest was normal. Cardiology was consulted due to bradycardia. He does have an EKG that shows what appears to be sinus bradycardia with a rate around 50 bpm. However, there is significant motion artifact from his tremors. He denies feeling dizzy or as if he is going to pass out. [facility] Disclaimer: The information contained in this section may have been updated after the patient was seen, as this information can be updated by other users. Medical History (Updated 03/08/24 @ 10:06 by Katiana Holm APRN) Acute on chronic respiratory failure with hypoxia and hypercapnia Sinus bradycardia Cognitive impairment BMI 32.0-32.9,adult Chronic hypercapnic respiratory failure Social History (Updated 03/07/24 @ 22:32 by Concepcion Farnsworth RN) Smoking Status: Never smoker alcohol intake: never current occupational status: other Travel in the last 8 weeks: None Review of Systems Review of Systems Review of systems:: pertinent systems reviewed and negative unless documented below Constitutional Constitutional: Reports system reviewed and no additional complaints, except as documented Eyes Eyes: Reports system reviewed and no additional complaints, except as documented ENT Ears, Nose, Mouth, and Throat: Reports system reviewed and no additional complaints, except as documented *Cardiovascular Cardiovascular: Reports system reviewed and no additional complaints, except as documented, Denies chest pain and Denies dyspnea *Respiratory Respiratory: Reports system reviewed and no additional complaints, except as documented and Denies dyspnea *Gastrointestinal Gastrointestinal: Reports system reviewed and no additional complaints, except as documented *Genitourinary Genitourinary: Reports system reviewed and no additional complaints, except as documented *Musculoskeletal Musculoskeletal: Reports system reviewed and no additional complaints, except as documented Integumentary/Breasts Skin/Breast: Reports system reviewed and no additional complaints, except as documented *Neurologic Neurologic: Reports system reviewed and no additional complaints, except as documented Psychiatric Psychiatric: Reports system reviewed and no additional complaints, except as documented Endocrine Endocrine: Reports system reviewed and no additional complaints, except as documented Hematologic/Lymphatic Hematologic/Lymphatic: Reports system reviewed and no additional complaints, except as documented Allergic/Immunologic Allergic/Immunologic: Reports system reviewed and no additional complaints, except as documented Exam Data for Last 24 hours Vital signs and Labs for Last 24 Hours: Temp Pulse Resp BP Pulse Ox O2 Del Method O2 Flow Rate 97.1 F L 50 L 18 97/71 L 96 BiPAP 2 03/08/24 08:00 03/08/24 08:57 03/08/24 08:00 03/08/24 08:00 03/08/24 08:41 03/08/24 08:41 03/08/24 08:00 FiO2 25 03/08/24 08:41 Laboratory Results - last 24 hr 03/07/24 20:23: WBC 3.0 L, RBC 5.12, Hgb 15.5, Hct 45.9, MCV 89.7, MCH 30.2, MCHC 33.7, RDW 15.1, Plt Count 67 L, MPV 8.2, Neut % (Auto) 67.9, Lymph % (Auto) 22.6, Lucas % (Auto) 8.8, Eos % (Auto) 0.2, Baso % (Auto) 0.5, Neut # (Auto) 2.0, Lymph # (Auto) 0.7, Lucas # (Auto) 0.3, Eos # (Auto) 0.0, Baso # (Auto) 0.0, VBG pH 7.27 L, VBG pCO2 70.7 H, VBG pO2 28.6, VBG HCO3 31.9 H, VBG Total CO2 34.1 H, VBG O2 Saturation 46.0 L, VBG Base Excess 5.0 H, VBG Lactic Acid 2.0, Sodium 146 H, Potassium 4.2, Chloride 108 H, Carbon Dioxide 32 H, Anion Gap 10.2, BUN 23 H, Creatinine 1.00, Estimated Creat Clear 110, Estimated GFR 74, Est GFR ( Amer) 89, Glucose 104 H, Calcium 8.8, Magnesium 1.9, Total Bilirubin 0.7, AST 41, ALT 30, Alkaline Phosphatase 64, Troponin I < 0.01, Total Protein 6.7, Albumin 4.1, Globulin 2.6, Albumin/Globulin Ratio 1.6 03/07/24 21:06: HIV 1&2 Antibody Rapid Nonreactive 03/07/24 21:42: Chlamy pneumoniae PCR Not detected, Adenovirus (PCR) Not detected, B. pertussis DNA (PCR) Not detected, Coronavirus OC43 (PCR) Not detected, Coronavirus HKU1 (PCR) Not detected, Coronavirus 229E (PCR) Not detected, SARS-CoV-2 (PCR) Not detected, Coronavirus NL63 (PCR) Not detected, Human Metapneumovir PCR Not detected, Influenza A (H1) PCR Not detected, Influ A (H1N1/09) PCR Not detected, Influenza A (H3) PCR Not detected, Influenza Type A (PCR) Not detected, Influenza Type B (PCR) Not detected, M. pneumoniae (PCR) Not detected, Parainfluenza 1 (PCR) Not detected, Parainfluenza 2 (PCR) Not detected, Parainfluenza 3 (PCR) Not detected, Parainfluenza 4 (PCR) Not detected, RSV (PCR) Not detected, Entero/Rhino (PCR) Not detected 03/07/24 23:52: Troponin I < 0.01 03/07/24 23:56: VBG pH 7.31, VBG pCO2 55.5 H, VBG pO2 36.7, VBG HCO3 27.5, VBG Total CO2 29.2 H, VBG O2 Saturation 67.2, VBG Base Excess 1.3, VBG Lactic Acid 1.7 03/07/24 : Magnesium 1.9, NT-Pro-B Natriuret Pep 1590 H 03/08/24 02:10: Troponin I < 0.01 03/08/24 04:23: Urine Color Yellow, Urine Appearance Clear, Urine pH 6.5, Ur Specific Stem 1.010, Urine Protein Negative, Urine Glucose (UA) 3+, Urine Ketones Negative, Urine Blood Negative, Urine Nitrate Negative, Urine Bilirubin Negative, Urine Urobilinogen 0.2, Ur Leukocyte Esterase Negative, Urine RBC 5- 10, Urine WBC 3-5, Ur Squamous Epith Cells Occasional, Urine Bacteria 1+ 03/08/24 05:45: WBC 3.2 L, RBC 5.07, Hgb 14.9, Hct 45.9, MCV 90.6, MCH 29.5, MCH C 32.5, RDW 15.1, Plt Count 68 L, MPV 8.4, Neut % (Auto) 83.4 H, Lymph % (Auto) 12.6, Lucas % (Auto) 3.5, Eos % (Auto) 0.2, Baso % (Auto) 0.3, Neut # (Auto) 2.6, Lymph # (Auto) 0.4 L, Lucas # (Auto) 0.1, Eos # (Auto) 0.0, Baso # (Auto) 0.0, Sodium 144, Potassium 4.1, Chloride 109 H, Carbon Dioxide 28, Anion Gap 11.1, BUN 23 H, Creatinine 0.90, Estimated Creat Clear 107, Estimated GFR 84, Est GFR ( Amer) 101, Glucose 145 H D, Calcium 8.9, Procalcitonin 0.040, TSH 2.61, Free T4 0.97 03/08/24 06:59: Troponin I < 0.01 I & O for Last 24 hours: Intake & Output 03/05/24 03/06/24 03/07/24 03/08/24 23:59 23:59 23:59 23:59 Output Total 250 / 250 Balance -250 / -250 Weight 238 lb 11.2 oz 238 lb 8 oz Constitutional Constitutional: no acute distress and average body habitus *Routine HEENT Exam Head: Present normocephalic and atraumatic ENT: Present mucous membranes moist *Routine Neck Exam Neck: Present supple, full ROM and normal carotid upstroke; Absent JVD, carotid bruit or lymphadenopathy *Routine Respiratory Exam Respiratory: Present CTA bilaterally, normal respiratory effort, able to speak in complete sentences and symmetric chest movement *Routine Cardiovascular Exam Cardiovascular: Present RRR, Normal S1, Normal S2 and bradycardia; Absent murmur or gallop *Routine Abdominal Exam Abdominal: Present soft and normoactive bowel sounds; Absent tenderness, distended or organomegaly *Routine Extremities Exam Extremities: Present full ROM, pulses intact and normal capillary refill; Absent cyanosis, clubbing or edema *Routine Skin Exam Skin: Present intact and warm; Absent erythema *Routine Neurological Exam Neurological: Present alert and altered mental status Routine Psychiatric Exam Psychiatric: Present normal affect and cooperative Meds Home Medications and Allergies Home Medications ?Medication ?Instructions ?Recorded ?Confirmed ?Type aspirin 81 mg chewable tablet 81 mg PO DAILY 03/07/24 03/07/24 History atorvastatin 40 mg tablet 40 mg PO HS 03/07/24 03/07/24 History buspirone 10 mg tablet 10 mg PO BID 03/07/24 03/07/24 History divalproex 500 mg tablet,delayed 500 mg PO TID 03/07/24 03/07/24 History release empagliflozin 10 mg tablet 10 mg PO DAILY 03/07/24 03/07/24 History (Jardiance) ferrous sulfate 325 mg (65 mg 325 mg PO DAILY 03/07/24 03/07/24 History iron) tablet loperamide 2 mg capsule 2 mg PO QID PRN Diarrhea 03/07/24 03/07/24 History lumateperone 42 mg capsule 42 mg PO DAILY 03/07/24 03/07/24 History (Caplyta) metoprolol succinate 25 mg 25 mg PO HS 03/07/24 03/07/24 History tablet,extended release 24 hr paroxetine HCl 20 mg tablet 20 mg PO HS 03/07/24 03/07/24 History New Prescriptions to Start Prescriptions: Allergies Allergy/AdvReac Type Severity Reaction Status Date / Time No Known Allergies Allergy Verified 11/18/23 22:35 Assessment and Plan *Assessment and plan (1) Sinus bradycardia: Status: Acute Category: Medical Code(s): R00.1 - Bradycardia, unspecified (2) Cognitive impairment: Status: Acute Category: Medical Code(s): R41.89 - Other symptoms and signs involving cognitive functions and awareness (3) Acute on chronic respiratory failure with hypoxia and hypercapnia: Status: Acute Category: Medical Code(s): J96.21 - Acute and chronic respiratory failure with hypoxia; J96.22 - Acute and chronic respiratory failure with hypercapnia Plan Plan: 1. The patient was admitted to the hospital with acute on chronic respiratory failure. We do recommend pulmonology referral. However, this will be left up to the hospitalist. 2. The patient does have chronic cognitive impairment. Will defer to the hospitalist. 3. The patient was bradycardic on pulse ox. His EKG does appear to be sinus bradycardia with a rate around 50. He does have significant underlying artifact due to tremors. Will place the patient on continuous telemetry monitoring while he is in the hospital. 4. Stop his metoprolol. 5. His magnesium is normal. 6. Will obtain a TSH and free T4 due to bradycardia. 7. His blood pressure is acceptable at this time. 8. His LDL goal is less than 100. Will obtain a lipid panel. 9. He denies any chest pain or pressure. No plans for invasive left cardiac catheterization at this time. His troponins are negative. 10. His BNP is elevated over 1500. Will give him a one-time dose of Lasix 40 mg p.o. daily. He would also likely benefit from being on a small dose of oral diuretics once he is discharged home. 11. We do recommend that the patient be discharged from the hospital with a 30- day event monitor in place due to his bradycardia. No plans for permanent pacemaker placement at this time. 12. No further recommendations at this time from a cardiac standpoint. If any other cardiac issues arise throughout the patient's hospitalization, please feel free to contact cardiology again. Thank you for the opportunity to participate in the care of this patient. All recommendations and orders are per Dr. Ronquillo.
[2024-03-08 10:38] LABS: Chol/HDL Ratio 6.5 (1-3.5); Cholesterol 162 mg/dl (140-200); HDL Cholesterol 25 mg/dl (40-60); Triglycerides 117 mg/dl (30-150); VLDL Cholesterol 23 mg/dL (0-40)
[2024-03-08 10:39] LABS: Lactate Venous 2.9 mmol/L (0.4-2.0)
[2024-03-08 10:49] LABS: Direct LDL Cholesterol 118.19 mg/dL (100-129)
[2024-03-08 11:15] LABS: Reflex Lactic Add Lactic Reflex
--- NOTE | 2024-03-08 11:55 | PC.NURSE ---
RT placed pt on RA, sats 96%
[2024-03-08 11:58] LABS: Lactic Acid Follow Up (RFLX 1) 2.8 mmol/L (0.7-2.1)
[2024-03-08] MEDS: FUROSEMIDE 40MG/4ML VIAL 40 MG IV (11:59)
[2024-03-08 13:33] LABS: Reflex Lactic (2 hrs) Add Lactic Reflex
--- NOTE | 2024-03-08 13:40 | SW/DCPLANNER ---
Addendum entered by [facility] 03/13/24 09:50: [facility] is willing to accept this patient under PHUONG pending today. Addendum entered by [facility] 03/12/24 13:51: Per [facility] precert is still pending at this time. Addendum entered by [facility] 03/12/24 07:48: [facility] and [facility] are interested in this patient. Addendum entered by [facility] 03/11/24 11:38: [facility], [facility] and [facility] have denied this patient. Patient information has also been faxed to [facility]. Currently waiting to hear back from the following facilities: [facility], [facility] and [facility]. Addendum entered by [facility] 03/11/24 09:08: Patient information has also been faxed to [facility] and [facility] & [facility]. Addendum entered by [facility] 03/11/24 08:54: Per patient will now need placement due to the need for assistance w/ ADLs. Patient is alert and oriented and agreeable to placement at time of discharge. Patient information has been faxed to [facility] and [facility]. Original Note: This patient currently resides at [facility]. I have updated [facility] that patient may return tomorrow pending no setbacks.
--- NOTE | 2024-03-08 13:53 | HMH.PTEV ---
Physical Therapy Evaluation Rehab PT IP Evaluation Start: 03/08/24 10:45 Freq: ONCE Status: Active Protocol: Document 03/08/24 13:41 CHAVA (Rec: 03/08/24 13:53 PHOTHEO [id number]) Subjective/History History History 69-year-old male that presents w/ concerns of acute dyspnea. Pt currently lives in an assisted living facility in [facility] ([facility] Pt states he is independent and does not use any assistive devices for ambulation. Subjective Subjective Pt consents to therapy services this date. Pt denies any reports of pain. Pt is oriented to person, place, and birthday. New diagnosis of cancer in past 12 No months? Rehab PT IP Eval Objective Appearance Patient Behavior Appropriate,Cooperative Patient Orientation Person,Place,Birthday Difficulty following instructions none Speech Pattern Appropriate,Poor Articulation Ambulation Patient Able to Ambulate Yes Ambulation Observation IP General Gait Pattern Observation No Deviations/Normal Ambulation Distance (feet) 20 Ambulation Assistive Device Rolling Walker Ambulation Ability Contact Guard/Hand Hold Balance Ability to Arise Able, uses arms to help Sitting Balance Steady, safe Dynamic Sitting Balance Ability Good Dynamic Standing Balance Ability Good Transfers Bed Transfer Ability Independent Sit to Stand Bed Transfer Ability Contact Guard/Hand Hold Rehab PT IP prob,goals,plan Problems Date of Evaluation: 03/08/24 PT IP Problems Transfers,Gait,Balance,Self care Rehab Potential Rehab Potential Good Equipment Needs Assistive Devices Rolling / Wheeled Walker Plan PT Intervention Plan Transfers,Gait,Balance PT Plan Frequency Daily Duration LOS Discharge Goals Bed Transfer Ability Independent Sit to Stand Chair Transfer Ability Independent Ambulation Assistive Device None Ambulation Distance (feet) 30 Discharge Plan PT Discharge Plan Pt would be appropriate to return to his assisted living facility. Skilled therapy services are currently indicated to progress transfers, gait, and dynamic standing balance. Eval Complexity Eval Charge Codes 78209 - High Complexity PHYSICIAN CERTIFICATION: I certify the specified therapy services for Sb Sellers are required, authorized, and reviewed every 30 days.
--- NOTE | 2024-03-08 14:48 | HMH.OTEV ---
OT Inpatient Evaluation Rehab OT IP Evaluation Start: 03/08/24 10:45 Freq: ONCE Status: Active Protocol: Document 03/08/24 14:43 PINARUTHIE (Rec: 03/08/24 14:48 TIM [id number]) Rehab OT IP Assessment Subjective History This is a 69-year-old male that presents to [facility] emergency department from his independent living facility ( [facility]) for concerns of acute dyspnea. The patient has chronic cognitive impairment. A VBG in the ED identified a pH of 7.27 with pCO2 of 71 and he required NIPPV therapy to improve his dyspnea and interactions. A CTA of the chest identified no acute findings. [facility]. Patient stated he completed fx 'l mobility independently. Staffing to assist with ADLs as needed. Subjective Yeah. Instructed Patient on safety awareness to complete bed mobility from supine->sit @ EOB requiring SUP. Instructed patient on sit->stand requiring SBA with usage of RW . Patient incontinet of bowel and bladder mgt tr this date. Patient required Max A to complete lori hygiene and brief changing. Patient completed fx'l mobility ~20ft within room with usage of RW with CGA for safety. Assisted patient back to bed with needs met at end of session. Objective Patient Orientation Person,Place,Name,Age,Birthday ,Year Right Upper Extremity Gross ROM WFL Left Upper Extremity Gross ROM WFL Bed Mobility bed mobility - supine/sit Assist Level Supervision/Stand by Transfer Training Sit/Stand/Pivot Transfer Assist Level Contact Guard/Hand Hold Lower Body Dressing Ability Maximum Assistance Rehab OT IP prob,goals,plan Problems Date of Evaluation: 03/08/24 OT IP Problems Bed Mobility,Transfers,Balance ,Self care,Safety Rehab Potential Rehab Potential Good Equipment Needs Assistive Devices Rolling / Wheeled Walker Plan OT intervention Plan Bed Mobility,Transfers,Balance ,Self care,Safety,Therapeutic Exercise OT Plan Frequency Daily Duration LOS Discharge Goals Bed Mobility Ability Independent Sit to Stand Chair Transfer Ability Supervision/Stand by Chair Transfer Ability Supervision/Stand by Discharge Plan OT Discharge Plan Recommend Patient to return back to [facility] for 05/12 care. Patient to continue skilled OT IP services while here at [facility]. Eval Complexity Eval Charge Codes 15493 - Low Complexity PHYSICIAN CERTIFICATION: I certify the specified therapy services for Sb Syck are required, authorized, and reviewed every 30 days.
--- NOTE | 2024-03-08 15:38 | P.PN_ITS ---
Subjective *Date: 03/08/24 *Time: 18:48 Interval history: Patient feeling better this morning. Alert. Interactive. Ambulating with therapy. They recommend walker but otherwise independently mobile. Wean off To room air with sats in the 94% range. Tolerating p.o. intake. Denies any s hortness of breath or chest pain. Medical Exam Vital signs and Labs for Last 24 Hours: Vital Signs Temp Pulse Pulse Resp BP BP Pulse Ox 03/08/24 13:00 03/08/24 12:00 60 03/08/24 12:00 98.0 F 64 16 135/92 H 93 L 03/08/24 11:51 58 L 03/08/24 11:51 61 03/08/24 11:51 96 03/08/24 11:00 03/08/24 09:00 03/08/24 08:57 50 L 03/08/24 08:41 96 03/08/24 08:00 03/08/24 08:00 97.1 F L 50 L 18 97/71 L 97 03/08/24 06:42 03/08/24 06:32 46 L 03/08/24 06:32 46 L 03/08/24 06:32 46 L 03/08/24 06:32 03/08/24 05:00 03/08/24 04:00 96.4 F L 45 L 16 105/78 L 95 03/08/24 03:00 03/08/24 01:29 03/08/24 01:00 03/08/24 00:00 96.9 F L 46 L 16 161/87 H 100 03/07/24 23:30 49 L 03/07/24 23:30 48 L 03/07/24 23:00 03/07/24 22:59 03/07/24 22:20 98.1 F 47 L 18 126/70 97 03/07/24 21:57 97.6 F 53 L 20 129/93 H 03/07/24 21:54 03/07/24 20:46 97.6 F 51 L 20 141/90 H 96 O2 Del Method O2 Flow Rate FiO2 03/08/24 13:00 Room Air 03/08/24 12:00 03/08/24 12:00 Room Air 03/08/24 11:51 03/08/24 11:51 03/08/24 11:51 Nasal Cannula 2 03/08/24 11:00 Nasal Cannula 2 03/08/24 09:00 Nasal Cannula 2 03/08/24 08:57 03/08/24 08:41 BiPAP 25 03/08/24 08:00 BiPAP 03/08/24 08:00 Nasal Cannula 2 03/08/24 06:42 BiPAP 03/08/24 06:32 03/08/24 06:32 03/08/24 06:32 BiPAP 25 03/08/24 06:32 25 03/08/24 05:00 BiPAP 03/08/24 04:00 BiPAP 03/08/24 03:00 BiPAP 03/08/24 01:29 25 03/08/24 01:00 Room Air 03/08/24 00:00 BiPAP 03/07/24 23:30 03/07/24 23:30 03/07/24 23:00 BiPAP 03/07/24 22:59 BiPAP 03/07/24 22:20 BiPAP 03/07/24 21:57 BiPAP 03/07/24 21:54 25 03/07/24 20:46 Room Air Intake and Output 03/07/24 03/08/24 03/08/24 23:59 07:59 15:59 Output Total 250 / 1000 750 / 1000 Balance -250 / -1000 -750 / -1000 Output: Output, Urine Amount 250 / 1000 750 / 1000 Other: Number of Unmeasured Voids 1 1 Number of Bowel Movements 1 1 Weight 108.272 kg 108.182 kg Patient Weight 03/08/24 23:59 Weight 108.182 kg Laboratory Results - last 24 hr 03/07/24 20:23: WBC 3.0 L, RBC 5.12, Hgb 15.5, Hct 45.9, MCV 89.7, MCH 30.2, MCHC 33.7, RDW 15.1, Plt Count 67 L, MPV 8.2, Neut % (Auto) 67.9, Lymph % (Auto) 22.6, [place] % (Auto) 8.8, Eos % (Auto) 0.2, Baso % (Auto) 0.5, Neut # (Auto) 2.0, Lymph # (Auto) 0.7, [place] # (Auto) 0.3, Eos # (Auto) 0.0, Baso # (Auto) 0.0, VBG pH 7.27 L, VBG pCO2 70.7 H, VBG pO2 28.6, VBG HCO3 31.9 H, VBG Total CO2 34.1 H, VBG O2 Saturation 46.0 L, VBG Base Excess 5.0 H, VBG Lactic Acid 2.0, Sodium 146 H, Potassium 4.2, Chloride 108 H, Carbon Dioxide 32 H, Anion Gap 10.2, BUN 23 H, Creatinine 1.00, Estimated Creat Clear 110, Estimated GFR 74, Est GFR ( Amer) 89, Glucose 104 H, Calcium 8.8, Magnesium 1.9, Total Bilirubin 0.7, AST 41, ALT 30, Alkaline Phosphatase 64, Troponin I < 0.01, Total Protein 6.7, Albumin 4.1, Globulin 2.6, Albumin/Globulin Ratio 1.6 03/07/24 21:06: HIV 1&2 Antibody Rapid Nonreactive 03/07/24 21:42: Chlamy pneumoniae PCR Not detected, Adenovirus (PCR) Not detected, B. pertussis DNA (PCR) Not detected, Coronavirus OC43 (PCR) Not detected, Coronavirus HKU1 (PCR) Not detected, Coronavirus 229E (PCR) Not detected, SARS-CoV-2 (PCR) Not detected, Coronavirus NL63 (PCR) Not detected, Human Metapneumovir PCR Not detected, Influenza A (H1) PCR Not detected, Influ A (H1N1/09) PCR Not detected, Influenza A (H3) PCR Not detected, Influenza Type A (PCR) Not detected, Influenza Type B (PCR) Not detected, M. pneumoniae (PCR) Not detected, Parainfluenza 1 (PCR) Not detected, Parainfluenza 2 (PCR) Not detected, Parainfluenza 3 (PCR) Not detected, Parainfluenza 4 (PCR) Not detected, RSV (PCR) Not detected, Entero/Rhino (PCR) Not detected 03/07/24 23:52: Troponin I < 0.01 03/07/24 23:56: VBG pH 7.31, VBG pCO2 55.5 H, VBG pO2 36.7, VBG HCO3 27.5, VBG Total CO2 29.2 H, VBG O2 Saturation 67.2, VBG Base Excess 1.3, VBG Lactic Acid 1.7 03/07/24 : Magnesium 1.9, NT-Pro-B Natriuret Pep 1590 H 03/08/24 02:10: Troponin I < 0.01 03/08/24 04:23: Urine Color Yellow, Urine Appearance Clear, Urine pH 6.5, Ur Specific [place] 1.010, Urine Protein Negative, Urine Glucose (UA) 3+, Urine Ketones Negative, Urine Blood Negative, Urine Nitrate Negative, Urine Bilirubin Negative, Urine Urobilinogen 0.2, Ur Leukocyte Esterase Negative, Urine RBC 5- 10, Urine WBC 3-5, Ur Squamous Epith Cells Occasional, Urine Bacteria 1+ 03/08/24 05:45: WBC 3.2 L, RBC 5.07, Hgb 14.9, Hct 45.9, MCV 90.6, MCH 29.5, MCHC 32.5, RDW 15.1, Plt Count 68 L, MPV 8.4, Neut % (Auto) 83.4 H, Lymph % (Auto) 12.6, [place] % (Auto) 3.5, Eos % (Auto) 0.2, Baso % (Auto) 0.3, Neut # (Auto) 2.6, Lymph # (Auto) 0.4 L, [place] # (Auto) 0.1, Eos # (Auto) 0.0, Baso # (Auto) 0.0, Sodium 144, Potassium 4.1, Chloride 109 H, Carbon Dioxide 28, Anion Gap 11.1, BUN 23 H, Creatinine 0.90, Estimated Creat Clear 107, Estimated GFR 84, Est GFR ( Amer) 101, Glucose 145 H D, Calcium 8.9, Procalcitonin 0.040, TSH 2.61, Free T4 0.97 03/08/24 06:59: Troponin I < 0.01, Triglycerides 117, Cholesterol 162, LDL Cholesterol Direct 118.19, VLDL Cholesterol 23, HDL Cholesterol 25 L, Cholesterol/HDL Ratio 6.5 H 03/08/24 07:04: VBG pH 7.43 H, VBG pCO2 39.8, VBG pO2 152.1 H, VBG HCO3 26.1, VBG Total CO2 27.3 H, VBG O2 Saturation 99.1 H, VBG Base Excess 1.8, VBG Lactic Acid 2.9 H 03/08/24 11:30: Lactate 2.8 H 03/08/24 13:57: Lactate 4.0 H I & O for Labs for Last 24 Hours: Intake & Output 03/05/24 03/06/24 03/07/24 03/08/24 23:59 23:59 23:59 23:59 Output Total 1000 / 1000 Balance -1000 / -1000 Weight 108.272 kg 108.182 kg Constitutional: Present no acute distress, obese, chronically ill appearing and cooperative Head: Present atraumatic and normocephalic ENT: Present normal exam Comment:: Seborrheic dermatitis on his face Respiratory: Present normal respiratory effort; Absent respiratory distress, rhonchi, stridor, wheezes or crackles Cardiac: Present Reg Rate and Rhythm GI: Present soft and normal bowel sounds; Absent distention or tenderness Extremities: Present normal inspection and full ROM Skin: Present intact; Absent erythema Neuro: Present Essential Tremor, Grossly Intact, alert, awake and moves all extremities Comment:: Tremor versus tardive dyskinesia. Assessment and Plan *Assessment and plan (1) Acute on chronic respiratory failure with hypoxia and hypercapnia: Status: Acute Category: Medical Code(s): J96.21 - Acute and chronic respiratory failure with hypoxia; J96.22 - Acute and chronic respiratory failure with hypercapnia (2) Cognitive impairment: Status: Acute Category: Medical Code(s): R41.89 - Other symptoms and signs involving cognitive functions and awareness (3) Sinus bradycardia: Status: Acute Category: Medical Code(s): R00.1 - Bradycardia, unspecified (4) Tremor: Status: Acute Category: Medical Code(s): R25.1 - Tremor, unspecified (5) Mood disorder: Status: Chronic Category: Medical Code(s): F39 - Unspecified mood [affective] disorder Plan This is a 69-year-old male that presented from [facility] with concerns of dyspnea and altered sensorium. He was identified with hypercapnia on his ED VBG. Responded well to BiPAP. Blood gas normal by morning. Weaned to room air. Continue to monitor overnight on telemetry given bradycardia. Evaluate for CPAP needs with morning blood gas. Problems addressed as follows: Acute on chronic respiratory failure with hypercapnia and hypoxia Wore BiPAP overnight. Blood gas this morning improved with pH 7.43, pCO2 39. Weaned to room air. Maintain O2 sats greater than 90%. Repeat VBG in the morning ordered. If remains normal, no indication for noninvasive positive pressure ventilation at home. BNP 1590, diuresed x 1 with Lasix 40 mg today. Monitor for negative fluid status Chest x-ray with no acute disease CTA chest with no acute disease DuoNebs every 6 hours scheduled DC steroids Sinus Bradycardia: Cardiology consulted, discussed case today. No plan for intervention at this time. Recommend stopping metoprolol given his bradycardia. Replace magnesium as needed. TSH evaluated, normal at 2.6. Recommend event monitor at discharge. BNP over 1500, recommend one-time Lasix 40 mg. Monitor for diuresis and improvement in breathing. Outpatient follow-up as needed -CBC, CMP, magnesium ordered for the morning. White count low at 3.2, he moglobin 15. Kidney function normal with BUN 23, creatinine 0.9. Echo obtained, formal read pending. Mood disorder: Continue home medications for mood including BuSpar 10 mg twice daily, Caplyta 42 mg daily, and Paxil 20 mg nightly. Patient does have tremor, will hold precooked at this time. Free valproic acid level ordered. Clinical presentation with patient's tremor concerning for parkinsonism secondary to medication Cognitive impairment Routine nursing interaction The length of stay for this patient will be 2 midnights or greater due to above diagnoses.
--- NOTE | 2024-03-08 18:06 | PC.NURSE ---
PT WAS ABLE TO TELL ME HIS NAME BUT NOTHING ELSE. BED ALARM ON FOR SAFETY HE WILL TRY TO GET OUT OF BED AND WILL NOT USE HIS CALL METZ. PT CONTINUES TO TEAR OFF TELE AND CONT PULSE MD NELL NOTIFIED. PLEASANTLY CONFUSED BUT WILL NOT LEAVE MONITORS ON. HE IS STILL DOING WELL ON RA. LARGE BM THIS SHIFT. PT LIKES TO HAVE SOMETHING TO DRINK IN REACH OR HE WILL TRY TO GET UP ON HIS OWN. CB AND DRINK WITHIN REACH NO NEEDS AT THIS TIME. PT CURRENTLY RESTING IN BED.
[2024-03-08] MEDS: BUSPIRONE HCL 10 MG TABLET PO (21:34)
[2024-03-08] MEDS: PANTOPRAZOLE 40MG TABLET 40 MG PO (21:34)
[2024-03-08] MEDS: ATORVASTATIN 40MG TABLET 40 MG PO (21:34)
[2024-03-08] MEDS: METOPROLOL SUCCINATE XL 25MG TABLET 25 MG PO (21:34)
[2024-03-09] VITALS (10 sets, daily range): BP systolic 122–151; BP diastolic 67–98; PULSE 55–115; RESP 18–21; TEMP 36.6–37.2; O2SAT 92–99; BMI 29.8
[2024-03-09] MEDS: IPRATROPIUM/ALBUTEROL 3 ML NEB IH ×4 (00:11→23:14)
--- NOTE | 2024-03-09 05:49 | PC.NURSE ---
Patient has continued to remove tele leads each time they are applied to him. Patient removed IV, hospitalist okay with no IV access at this time. Maintaining o2 stats <90% on room air. Patient able to tell me his name and this shift.
[2024-03-09 05:52] LABS: Basophils % 0.2 % (0.1-2.0); Eosinophils % 0.4 % (0.1-12.0); Hematocrit 47.5 % (42.0-52.0); Hemoglobin 15.7 g/dL (14.1-18.0); Lymphocytes # 0.5 K/mm3 (0.7-4.5); Lymphocytes % 9.2 % (10-50); Mean Corpuscular HGB Conc 32.9 g/dL (31.8-35.4); Mean Corpuscular Hemoglobin 29.9 pg (27.0-31.2); Mean Corpuscular Volume 90.8 fl (80-94); Mean Platelet Volume 8.9 fl (7.4-10.4); Monocytes # 0.4 K/mm3 (0.1-1.0); Monocytes % 8.3 % (1.7-9.3); Neutrophils # 4.4 K/mm3 (1.8-7.8); Neutrophils % 81.9 % (37.0-80.0); Platelet Count 77 K/mm3 (142-424); Red Blood Count 5.23 M/mm3 (4.60-6.20); Red Cell Distribution Width 15.3 % (11.5-17.5); White Blood Count 5.3 K/mm3 (4.8-10.8)
[2024-03-09 05:57] LABS: Albumin Level 4.1 g/dl (3.5-5.0); Chloride 103 mmol/L (98-107); Potassium 4.3 mmoL/L (3.5-5.1); Sodium 144 mmol/L (136-145)
[2024-03-09 05:59] LABS: Lactate Venous 2.9 mmol/L (0.4-2.0); VBG Base Excess 7.2 mmol/L (-2.4-2.3); VBG HCO3 32.6 mmol/L (23-30); VBG Oxygen Saturation 53.8 % (50-70); VBG PCO2 59.1 mmol/L (35-51); VBG PH 7.36 mmol/L (7.31-7.41); VBG PO2 30.4 mmol/L (28-40); VBG Total CO2 34.5 mmol/L (23-27)
[2024-03-09 06:00] LABS: Alanine Aminotransferase 27 U/L (12-78); Albumin/Globulin Ratio 2.1 (1.1-1.8); Alkaline Phosphatase 61 U/L (38-126); Anion Gap 10.3 mEq/L (5-15); Aspartate Amino Transferase 28 U/L (17-59); Bilirubin,Total 0.6 mg/dl (0.2-1.3); Blood Urea Nitrogen 32 mg/dl (9-20); Calcium 8.8 mg/dl (8.4-10.2); Carbon Dioxide 35 mmol/L (22.0-30.0); Creatinine Clearance Estimated 87 mL/min (50-200); Estimated Glomerular Filt Rate 60 ml/min (>60); GFR (African American) 73 ML/MIN (>60); Glucose 167 mg/dl (74-100); Total Protein,Serum 6.1 g/dl (6.3-8.2)
[2024-03-09 08:51] LABS: HCV Ab Non Reactive (Non Reactive)
[2024-03-09 09:59] LABS: Reflex Lactic Add Lactic Reflex
[2024-03-09] MEDS: EMPAGLIFLOZIN 10MG TABLET 10 MG PO (10:05)
[2024-03-09] MEDS: ASPIRIN 81MG CHEWABLE TABLET 81 MG PO (10:05)
[2024-03-09] MEDS: DIVALPROEX 250MG (Delayed-Release) TABLET 250 MG PO ×3 (10:05→20:21)
[2024-03-09] MEDS: DOCUSATE SODIUM 100 MG CAPSULE PO (10:06)
[2024-03-09] MEDS: BUSPIRONE HCL 10 MG TABLET PO ×2 (10:06→20:22)
[2024-03-09 10:53] LABS: Lactic Acid Follow Up (RFLX 1) 1.3 mmol/L (0.7-2.1)
--- NOTE | 2024-03-09 15:11 | EXP.ACUTE.PN ---
Subjective *Date: 03/09/24 *Time: 15:29 Interval history: Alert and interactive on exam this morning. Stable on room air. Had an episode of vomiting this morning after eating. Will monitor for another 24 hours. Denies any pain, shortness of breath, confusion today. Ambulating with minimal assistance. Medical Exam Vital signs and Labs for Last 24 Hours: Vital Signs Temp Pulse Pulse Resp BP Pulse Ox O2 Del Method 03/09/24 13:00 Room Air 03/09/24 11:49 55 L 03/09/24 11:49 57 L 03/09/24 11:49 99 Room Air 03/09/24 11:46 98 F 115 H 20 130/68 97 Room Air 03/09/24 10:59 Room Air 03/09/24 09:00 Room Air 03/09/24 08:00 Room Air 03/09/24 07:50 98.1 F 62 20 122/78 96 Room Air 03/09/24 06:55 Room Air 03/09/24 05:00 Room Air 03/09/24 04:00 97.8 F 60 18 130/78 96 Room Air 03/09/24 03:00 Room Air 03/09/24 01:00 Room Air 03/09/24 00:13 62 03/09/24 00:13 61 03/09/24 00:00 98.6 F 84 18 134/85 92 L Room Air 03/08/24 22:53 Room Air 03/08/24 21:34 Room Air 03/08/24 21:00 Room Air 03/08/24 19:28 98.6 F 83 20 114/62 92 L Room Air 03/08/24 18:51 Room Air 03/08/24 18:06 70 03/08/24 18:06 70 03/08/24 18:06 94 L Room Air 03/08/24 17:00 Room Air 03/08/24 16:00 98.5 F 67 16 111/61 94 L Room Air Intake and Output 03/08/24 03/09/24 03/09/24 23:59 07:59 15:59 Intake Total 300 / 540 540 / 540 Output Total 550 / 1550 450 / 450 0 / 450 Balance -250 / -1010 -450 / 90 540 / 90 Intake: Intake, Oral Amount 300 / 540 540 / 540 Output: Output, Urine Amount 550 / 1550 450 / 450 0 / 450 Other: Number of Unmeasured Voids 1 1 1 Number of Bowel Movements 1 Weight 105.506 kg Patient Weight 03/09/24 23:59 Weight 105.506 kg Laboratory Results - last 24 hr 03/07/24 21:06: Hepatitis C Antibody Non reactive 03/09/24 04:53: VBG pH 7.36, VBG pCO2 59.1 H, VBG pO2 30.4, VBG HCO3 32.6 H, VBG Total CO2 34.5 H, VBG O2 Saturation 53.8, VBG Base Excess 7.2 H, VBG Lactic Acid 2.9 H 03/09/24 05:32: WBC 5.3 D, RBC 5.23, Hgb 15.7, Hct 47.5, MCV 90.8, MCH 29.9, MCHC 32.9, RDW 15.3, Plt Count 77 L, MPV 8.9, Neut % (Auto) 81.9 H, Lymph % (Auto) 9.2 L, [place] % (Auto) 8.3, Eos % (Auto) 0.4, Baso % (Auto) 0.2, Neut # (Auto) 4.4, Lymph # (Auto) 0.5 L, [place] # (Auto) 0.4, Eos # (Auto) 0.0, Baso # (Auto) 0.0, Sodium 144, Potassium 4.3, Chloride 103, Carbon Dioxide 35 H, Anion Gap 10.3, BUN 32 H D, Creatinine 1.20 D, Estimated Creat Clear 87, Estimated GFR 60, Est GFR ( Amer) 73 D, Glucose 167 H, Calcium 8.8, Magnesium 2.0, Total Bilirubin 0.6, AST 28 D, ALT 27, Alkaline Phosphatase 61, Total Protein 6.1 L, Albumin 4.1, Globulin 2.0, Albumin/Globulin Ratio 2.1 H 03/09/24 10:09: Lactate 1.3 I & O for Labs for Last 24 Hours: Intake & Output 03/06/24 03/07/24 03/08/24 03/09/24 23:59 23:59 23:59 23:59 Intake Total 540 / 540 540 / 540 Output Total 1550 / 1550 450 / 450 Balance -1010 / -1010 90 / 90 Weight 108.272 kg 108.182 kg 105.506 kg Microbiology Reports for the Last 24 Hours: Microbiology 03/07/24 23:13 Nose MRSA Culture - Final Negative Constitutional: Present no acute distress, obese, chronically ill appearing and cooperative Head: Present atraumatic and normocephalic ENT: Present normal exam Comment:: Seborrheic dermatitis on his face Respiratory: Present normal respiratory effort; Absent respiratory distress, rhonchi, stridor, wheezes or crackles Cardiac: Present Reg Rate and Rhythm GI: Present soft and normal bowel sounds; Absent distention or tenderness Extremities: Present normal inspection and full ROM Skin: Present intact; Absent erythema Neuro: Present Essential Tremor, Grossly Intact, alert, awake and moves all extremities Comment:: Parkinsonian tremor versus tardive dyskinesia. Assessment and Plan *Assessment and plan (1) Acute on chronic respiratory failure with hypoxia and hypercapnia: Status: Acute Category: Medical Code(s): J96.21 - Acute and chronic respiratory failure with hypoxia; J96.22 - Acute and chronic respiratory failure with hypercapnia (2) Cognitive impairment: Status: Acute Category: Medical Code(s): R41.89 - Other symptoms and signs involving cognitive functions and awareness (3) Sinus bradycardia: Status: Acute Category: Medical Code(s): R00.1 - Bradycardia, unspecified (4) Tremor: Status: Acute Category: Medical Code(s): R25.1 - Tremor, unspecified (5) Mood disorder: Status: Chronic Category: Medical Code(s): F39 - Unspecified mood [affective] disorder Plan This is a 69-year-old male that presented from [facility] with concerns of dyspnea and altered sensorium. He was identified with hypercapnia on his ED VBG. Responded well to BiPAP. Blood gas normal by morning. Has been room air for over 24 hours. Blood gas this morning compensated with mild pCO2 59. Because of vomiting today, monitor for another 24 hours. If does well overnight, discharge back to [facility] tomorrow. Problems addressed as follows: Acute on chronic respiratory failure with hypercapnia and hypoxia Wore BiPAP overnight of first night. Repeat blood gas this morning with pH of 7.36, pCO2 of 59. Alert and oriented. Repeat VBG in the morning. -On room air, monitor for oxygen needs. Goal sats greater 90%. - BNP 1590 on admission, responded well to Lasix on day of admission, will administer second dose today. Chest x-ray with no acute disease CTA chest with no acute disease DuoNebs every 6 hours scheduled Sinus Bradycardia: Cardiology consulted, No plan for intervention at this time. Recommend stopping metoprolol given his bradycardia. Replace magnesium as needed. TSH normal at 2.6. Recommend event monitor at discharge. - CBC, CMP, magnesium ordered for the morning. White count normal at 5.3, hemoglobin 15.7. Kidney function normal with BUN 32, creatinine 1.2. Potassium 4.3, magnesium 2.0. Echo obtained, formal read pending. Mood disorder: Continue home medications for mood including BuSpar 10 mg twice daily, Caplyta 42 mg daily, and Paxil 20 mg nightly. Patient does have tremor, will hold precooked at this time. Free valproic acid level ordered. Clinical presentation with patient's tremor concerning for parkinsonism secondary to medication -Resume Depakote at half dose of 250 mg 3 times a day. Cognitive impairment Routine nursing interaction The length of stay for this patient will be 2 midnights or greater due to above diagnoses.
--- NOTE | 2024-03-09 17:43 | PC.NURSE ---
Pt alert only to self. Pt speech is mostly gibberish. He has been incontinent of both bowel and bladder this shift. Pt has also needed to be assisted with feedings because he eats too fast resulting in him to vomit. Pt given bed bath today with assist x2. Pt often tries to get out of bed unassisted, bed alarm is on. Call light within reach.
[2024-03-09] MEDS: BUDESONIDE 0.5MG/2ML NEB 0.5 MG IH (18:14)
[2024-03-09] MEDS: ATORVASTATIN 40MG TABLET 40 MG PO (20:21)
[2024-03-09] MEDS: PANTOPRAZOLE 40MG TABLET 40 MG PO (20:21)
[2024-03-09] MEDS: METOPROLOL SUCCINATE XL 25MG TABLET 25 MG PO (20:21)
[2024-03-09] MEDS: PARoxetine 20MG TABLET 20 MG PO (20:22)
[2024-03-10] VITALS (12 sets, daily range): BP systolic 117–149; BP diastolic 70–87; PULSE 58–77; RESP 18–20; TEMP 36.6–37.4; O2SAT 93–99; BMI 30.7
[2024-03-10] MEDS: BUDESONIDE 0.5MG/2ML NEB 0.5 MG IH ×2 (06:49→18:14)
[2024-03-10] MEDS: IPRATROPIUM/ALBUTEROL 3 ML NEB IH ×3 (06:49→18:14)
[2024-03-10 07:42] LABS: Basophils % 0.2 % (0.1-2.0); Eosinophils % 0.2 % (0.1-12.0); Hematocrit 43.7 % (42.0-52.0); Hemoglobin 14.5 g/dL (14.1-18.0); Lymphocytes # 0.7 K/mm3 (0.7-4.5); Lymphocytes % 12.4 % (10-50); Mean Corpuscular HGB Conc 33.3 g/dL (31.8-35.4); Mean Corpuscular Hemoglobin 29.5 pg (27.0-31.2); Mean Corpuscular Volume 88.7 fl (80-94); Mean Platelet Volume 8.2 fl (7.4-10.4); Monocytes # 0.5 K/mm3 (0.1-1.0); Monocytes % 9.6 % (1.7-9.3); Neutrophils # 4.4 K/mm3 (1.8-7.8); Neutrophils % 77.6 % (37.0-80.0); Platelet Count 79 K/mm3 (142-424); Red Blood Count 4.92 M/mm3 (4.60-6.20); Red Cell Distribution Width 15.3 % (11.5-17.5); White Blood Count 5.7 K/mm3 (4.8-10.8)
[2024-03-10 07:48] LABS: Chloride 99 mmol/L (98-107); Potassium 3.9 mmoL/L (3.5-5.1); Sodium 138 mmol/L (136-145)
[2024-03-10 07:51] LABS: Alanine Aminotransferase 24 U/L (12-78); Albumin/Globulin Ratio 1.7 (1.1-1.8); Alkaline Phosphatase 63 U/L (38-126); Anion Gap 8.9 mEq/L (5-15); Aspartate Amino Transferase 31 U/L (17-59); Bilirubin,Total 0.7 mg/dl (0.2-1.3); Blood Urea Nitrogen 26 mg/dl (9-20); Calcium 8.5 mg/dl (8.4-10.2); Carbon Dioxide 34 mmol/L (22.0-30.0); Creatinine Clearance Estimated 97 mL/min (50-200); Estimated Glomerular Filt Rate 66 ml/min (>60); GFR (African American) 80 ML/MIN (>60); Globulin 2.3 g/dL (1.3-3.2); Glucose 121 mg/dl (74-100); Magnesium 1.7 mg/dl (1.6-2.3); Total Protein,Serum 6.3 g/dl (6.3-8.2)
[2024-03-10] MEDS: BUSPIRONE HCL 10 MG TABLET PO ×2 (08:07→21:24)
[2024-03-10] MEDS: DIVALPROEX 250MG (Delayed-Release) TABLET 250 MG PO ×3 (08:07→21:25)
[2024-03-10] MEDS: DOCUSATE SODIUM 100 MG CAPSULE PO (08:07)
[2024-03-10] MEDS: ASPIRIN 81MG CHEWABLE TABLET 81 MG PO (08:07)
[2024-03-10] MEDS: EMPAGLIFLOZIN 10MG TABLET 10 MG PO (08:07)
[2024-03-10] MEDS: MAGNESIUM OXIDE 400MG TABLET 400 MG PO ×2 (09:26→21:25)
--- NOTE | 2024-03-10 13:45 | P.PN_ITS ---
Subjective *Date: 03/10/24 *Time: 13:49 Interval history: Pleasant on exam this morning. Necessitating assistance with ADLs, to ambulate to bathroom. Patient incontinent. Stable on room air. Tolerating p.o. intake. No further vomiting. Concern patient's not stable to go to rehab. Amenable to going to rehab per discussion this morning Medical Exam Vital signs and Labs for Last 24 Hours: Vital Signs Temp Pulse Pulse Resp BP Pulse Ox O2 Del Method 03/10/24 13:00 Room Air 03/10/24 12:00 99.3 F 64 18 132/87 93 L Room Air 03/10/24 11:31 68 03/10/24 11:31 67 03/10/24 11:31 98 Room Air 03/10/24 11:00 Room Air 03/10/24 09:00 Room Air 03/10/24 08:00 98.4 F 74 20 117/70 99 Room Air 03/10/24 07:44 Room Air 03/10/24 06:50 61 03/10/24 06:50 58 L 03/10/24 06:50 96 Room Air 03/10/24 06:41 Room Air 03/10/24 04:58 Room Air 03/10/24 04:00 97.9 F 74 18 128/74 99 Room Air 03/10/24 03:00 Room Air 03/10/24 01:00 Room Air 03/10/24 00:16 61 03/10/24 00:15 62 03/10/24 00:00 97.8 F 68 20 149/71 H 94 L Room Air 03/09/24 23:00 Room Air 03/09/24 21:00 Room Air 03/09/24 20:22 Room Air 03/09/24 19:47 98.3 F 101 H 18 151/98 H 97 Room Air 03/09/24 19:41 55 L 03/09/24 19:40 57 L 03/09/24 18:35 Room Air 03/09/24 17:00 Room Air 03/09/24 16:00 98.9 F 64 21 135/67 96 Room Air 03/09/24 15:00 Room Air Intake and Output 03/09/24 03/10/24 03/10/24 23:59 07:59 15:59 Intake Total 720 / 1260 540 / 540 Output Total 0 / 450 0 / 0 Balance 720 / 810 0 / 540 540 / 540 Intake: Intake, Oral Amount 720 / 1260 540 / 540 Output: Output, Urine Amount 0 / 450 0 / 0 Other: Number of Unmeasured Voids 1 1 1 Number of Bowel Movements 1 1 1 Weight 108.499 kg Patient Weight 03/10/24 23:59 Weight 108.499 kg Laboratory Results - last 24 hr 03/10/24 06:58: WBC 5.7, RBC 4.92, Hgb 14.5, Hct 43.7, MCV 88.7, MCH 29.5, MCHC 33.3, RDW 15.3, Plt Count 79 L, MPV 8.2, Neut % (Auto) 77.6, Lymph % (Auto) 12.4, [place] % (Auto) 9.6 H, Eos % (Auto) 0.2, Baso % (Auto) 0.2, Neut # (Auto) 4.4, Lymph # (Auto) 0.7, [place] # (Auto) 0.5, Eos # (Auto) 0.0, Baso # (Auto) 0.0, Sodium 138, Potassium 3.9, Chloride 99, Carbon Dioxide 34 H, Anion Gap 8.9, BUN 26 H, Creatinine 1.10, Estimated Creat Clear 97, Estimated GFR 66, Est GFR ( Amer) 80, Glucose 121 H, Calcium 8.5, Magnesium 1.7 D, Total Bilirubin 0.7, AST 31, ALT 24, Alkaline Phosphatase 63, Total Protein 6.3, Albumin 4.0, Globulin 2.3, Albumin/Globulin Ratio 1.7 I & O for Labs for Last 24 Hours: Intake & Output 03/07/24 03/08/24 03/09/24 03/10/24 23:59 23:59 23:59 23:59 Intake Total 540 / 540 1260 / 1260 540 / 540 Output Total 1550 / 1550 450 / 450 0 / 0 Balance -1010 / -1010 810 / 810 540 / 540 Weight 108.272 kg 108.182 kg 105.506 kg 108.499 kg Constitutional: Present no acute distress, obese, chronically ill appearing and cooperative Head: Present atraumatic and normocephalic ENT: Present normal exam Comment:: Seborrheic dermatitis on his face Respiratory: Present normal respiratory effort; Absent respiratory distress, rhonchi, stridor, wheezes or crackles Cardiac: Present Reg Rate and Rhythm GI: Present soft and normal bowel sounds; Absent distention or tenderness Extremities: Present normal inspection and full ROM Skin: Present intact; Absent erythema Neuro: Present Essential Tremor, Grossly Intact, alert, awake and moves all extremities Comment:: Parkinsonian tremor versus tardive dyskinesia. Assessment and Plan *Assessment and plan (1) Acute on chronic respiratory failure with hypoxia and hypercapnia: Status: Acute Category: Medical Code(s): J96.21 - Acute and chronic respiratory failure with hypoxia; J96.22 - Acute and chronic respiratory failure with hypercapnia (2) Cognitive impairment: Status: Acute Category: Medical Code(s): R41.89 - Other symptoms and signs involving cognitive functions and awareness (3) Sinus bradycardia: Status: Acute Category: Medical Code(s): R00.1 - Bradycardia, unspecified (4) Tremor: Status: Acute Category: Medical Code(s): R25.1 - Tremor, unspecified (5) Mood disorder: Status: Chronic Category: Medical Code(s): F39 - Unspecified mood [affective] disorder Plan This is a 69-year-old male that presented from [facility] with concerns of dyspnea and altered sensorium. He was identified with hypercapnia on his ED VBG. Responded well to BiPAP. Blood gas normal by morning. Stable on room air for over 48 hours. No further signs of confusion. Tolerating p.o. intake. Patient unfortunately not appropriate to return to his personal snf in my opinion. Will continue to have him work with therapy. Case management to assist with referral for placement. Problems addressed as follows: Acute on chronic respiratory failure with hypercapnia and hypoxia - Wore BiPAP overnight of first night. Repeat blood gas morning after with pH of 7.36, pCO2 of 59. Alert and oriented. we will repeat VBG in the morning to monitor for stability. THas not worn BiPAP t for over 36 hours. Appears at baseline mentation. -On room air, monitor for oxygen needs. Goal sats greater 90%. - BNP 1590 on admission, responded well to Lasix on day of admission, she 40 mg IV yesterday. Having good output. Kidney function remained stable. Hold on Lasix today. Reevaluate need to - DuoNebs every 6 hours scheduled Sinus Bradycardia: Cardiology consulted, No plan for intervention at this time. Recommend stopping metoprolol given his bradycardia. Replace magnesium as needed. TSH normal at 2.6. Recommend event monitor at discharge. - CBC, CMP, magnesium ordered for the morning. White count normal at 5.7, hemoglobin 14. Platelets 79. Kidney function normal with BUN 26, creatinine 1.1. Potassium 3.9. Mood disorder: Continue home medications for mood including BuSpar 10 mg twice daily, Caplyta 42 mg daily, and Paxil 20 mg nightly. Patient does have tremor, will hold precooked at this time. - Free valproic acid level ordered, pending as it is a send out. Clinical p resentation with patient's tremor concerning for parkinsonism secondary to medication, tremor appears to be improving somewhat over the past 24 hours -Continue depakote at half dose of 250 mg 3 times a day. Cognitive impairment Routine nursing interaction The length of stay for this patient will be 2 midnights or greater due to above diagnoses.
--- NOTE | 2024-03-10 18:06 | PC.NURSE ---
Pt requiring assist x3 for transfers. Pt given shower this shift. Pt still requiring queuing during meals to slow down. Pt has been incontinent of both bowel and bladder today and have required total assistance x2 to be cleaned up.
[2024-03-10] MEDS: ATORVASTATIN 40MG TABLET 40 MG PO (21:24)
[2024-03-10] MEDS: METOPROLOL SUCCINATE XL 25MG TABLET 25 MG PO (21:25)
[2024-03-10] MEDS: PANTOPRAZOLE 40MG TABLET 40 MG PO (21:25)
[2024-03-10] MEDS: PARoxetine 20MG TABLET 20 MG PO (21:25)
[2024-03-11] VITALS (8 sets, daily range): BP systolic 112–128; BP diastolic 57–76; PULSE 55–94; RESP 16–22; TEMP 36.6–37.1; O2SAT 93–98; BMI 30.6
[2024-03-11] MEDS: BUDESONIDE 0.5MG/2ML NEB 0.5 MG IH ×2 (06:40→18:55)
[2024-03-11] MEDS: IPRATROPIUM/ALBUTEROL 3 ML NEB IH ×3 (06:40→18:55)
[2024-03-11 07:21] LABS: Lactate Venous 1.9 mmol/L (0.4-2.0); VBG Base Excess -0.9 mmol/L (-2.4-2.3); VBG HCO3 23.4 mmol/L (23-30); VBG Oxygen Saturation 89.7 % (50-70); VBG PCO2 35.9 mmol/L (35-51); VBG PH 7.43 mmol/L (7.31-7.41); VBG PO2 56.9 mmol/L (28-40); VBG Total CO2 24.5 mmol/L (23-27)
[2024-03-11 07:31] LABS: Albumin Level 3.8 g/dl (3.5-5.0); Chloride 100 mmol/L (98-107); Potassium 3.7 mmoL/L (3.5-5.1); Sodium 135 mmol/L (136-145)
[2024-03-11 07:34] LABS: Alanine Aminotransferase 27 U/L (12-78); Albumin/Globulin Ratio 1.5 (1.1-1.8); Alkaline Phosphatase 62 U/L (38-126); Anion Gap 13.7 mEq/L (5-15); Aspartate Amino Transferase 32 U/L (17-59); Bilirubin,Total 0.8 mg/dl (0.2-1.3); Blood Urea Nitrogen 26 mg/dl (9-20); Carbon Dioxide 25 mmol/L (22.0-30.0); Creatinine Clearance Estimated 89 mL/min (50-200); Estimated Glomerular Filt Rate 60 ml/min (>60); GFR (African American) 73 ML/MIN (>60); Globulin 2.6 g/dL (1.3-3.2); Total Protein,Serum 6.4 g/dl (6.3-8.2)
[2024-03-11 07:35] LABS: Calcium 8.4 mg/dl (8.4-10.2); Glucose 148 mg/dl (74-100)
[2024-03-11] MEDS: DIVALPROEX 250MG (Delayed-Release) TABLET 250 MG PO ×3 (09:25→20:51)
[2024-03-11] MEDS: EMPAGLIFLOZIN 10MG TABLET 10 MG PO (09:25)
[2024-03-11] MEDS: ASPIRIN 81MG CHEWABLE TABLET 81 MG PO (09:25)
[2024-03-11] MEDS: BUSPIRONE HCL 10 MG TABLET PO ×2 (09:25→20:50)
[2024-03-11] MEDS: MAGNESIUM OXIDE 400MG TABLET 400 MG PO ×2 (09:26→20:51)
--- NOTE | 2024-03-11 12:54 | P.PN_ITS ---
Subjective *Date: 03/11/24 *Time: 19:58 Interval history: Pleasant on exam this morning. Necessitating assistance with ADLs, to ambulate to bathroom. Patient incontinent. Stable on room air. Tolerating p.o. intake. No further vomiting. Concern patient's not stable to go to rehab. Amenable to going to rehab per discussion this morning Medical Exam Vital signs and Labs for Last 24 Hours: Vital Signs Temp Pulse Pulse Resp BP Pulse Ox O2 Del Method 03/11/24 11:43 98.1 F 94 H 22 123/57 L 93 L Room Air 03/11/24 11:00 Room Air 03/11/24 09:00 Room Air 03/11/24 08:00 Room Air 03/11/24 08:00 97.8 F 61 20 116/71 96 Room Air 03/11/24 06:49 Room Air 03/11/24 06:40 63 03/11/24 06:40 63 03/11/24 06:40 93 L Room Air 03/11/24 05:00 Room Air 03/11/24 04:00 97.9 F 62 17 113/57 L 94 L Room Air 03/11/24 03:00 Room Air 03/11/24 01:00 Room Air 03/11/24 00:00 98.8 F 64 17 112/60 96 Room Air 03/10/24 23:00 Room Air 03/10/24 21:00 Room Air 03/10/24 20:00 Room Air 03/10/24 20:00 99.0 F 77 18 135/75 95 Room Air 03/10/24 19:17 66 03/10/24 19:15 66 03/10/24 18:33 Room Air 03/10/24 17:00 Room Air 03/10/24 16:00 98.1 F 68 20 126/76 95 Room Air 03/10/24 15:00 Room Air 03/10/24 13:00 Room Air Intake and Output 03/10/24 03/11/24 03/11/24 23:59 07:59 15:59 Intake Total 470 / 2050 200 / 440 240 / 440 Output Total 0 / 0 0 / 0 Balance 470 / 2050 200 / 440 240 / 440 Intake: Intake, Oral Amount 470 / 2050 200 / 440 240 / 440 Output: Output, Urine Amount 0 / 0 0 / 0 Other: Number of Unmeasured Voids 1 1 Number of Bowel Movements 1 1 1 Weight 108.5 kg 108.272 kg Patient Weight 03/11/24 23:59 Weight 108.272 kg Laboratory Results - last 24 hr 03/11/24 07:07: VBG pH 7.43 H, VBG pCO2 35.9, VBG pO2 56.9 H, VBG HCO3 23.4, VBG Total CO2 24.5, VBG O2 Saturation 89.7 H, VBG Base Excess -0.9, VBG Lactic Acid 1.9, Sodium 135 L, Potassium 3.7, Chloride 100, Carbon Dioxide 25, Anion Gap 13.7, BUN 26 H, Creatinine 1.20, Estimated Creat Clear 89, Estimated GFR 60, Est GFR ( Amer) 73, Glucose 148 H, Calcium 8.4, Total Bilirubin 0.8, AST 32, ALT 27, Alkaline Phosphatase 62, Total Protein 6.4, Albumin 3.8, Globulin 2.6, Albumin/Globulin Ratio 1.5 I & O for Labs for Last 24 Hours: Intake & Output 03/08/24 03/09/24 03/10/24 03/11/24 23:59 23:59 23:59 23:59 Intake Total 540 / 540 1260 / 1260 1850 / 2050 440 / 440 Output Total 1550 / 1550 450 / 450 0 / 0 0 / 0 Balance -1010 / -1010 810 / 810 185 / 0 440 / 440 Weight 108.182 kg 105.506 kg 108.5 kg 108.272 kg Constitutional: Present no acute distress, obese, chronically ill appearing and cooperative Head: Present atraumatic and normocephalic ENT: Present normal exam Comment:: Seborrheic dermatitis on his face Respiratory: Present normal respiratory effort; Absent respiratory distress, rhonchi, stridor, wheezes or crackles Cardiac: Present Reg Rate and Rhythm GI: Present soft and normal bowel sounds; Absent distention or tenderness Extremities: Present normal inspection and full ROM Skin: Present intact; Absent erythema Neuro: Present Essential Tremor, Grossly Intact, alert, awake and moves all extremities Comment:: Parkinsonian tremor versus tardive dyskinesia. Assessment and Plan *Assessment and plan (1) Acute on chronic respiratory failure with hypoxia and hypercapnia: Status: Acute Category: Medical Code(s): J96.21 - Acute and chronic respiratory failure with hypoxia; J96.22 - Acute and chronic respiratory failure with hypercapnia (2) Cognitive impairment: Status: Acute Category: Medical Code(s): R41.89 - Other symptoms and signs involving cognitive functions and awareness (3) Sinus bradycardia: Status: Acute Category: Medical Code(s): R00.1 - Bradycardia, unspecified (4) Tremor: Status: Acute Category: Medical Code(s): R25.1 - Tremor, unspecified (5) Mood disorder: Status: Chronic Category: Medical Code(s): F39 - Unspecified mood [affective] disorder Plan This is a 69-year-old male that presented from [facility] with concerns of dyspnea and altered sensorium. He was identified with hypercapnia on his ED VBG. Responded well to BiPAP. Blood gas normal by morning. Stable on room air for over 48 hours. No further signs of confusion. Tolerating p.o. intake. Patient unfortunately not appropriate to return to his personal senior care in my opinion. Will continue to have him work with therapy. Case management to assist with referral for placement. Problems addressed as follows: Acute on chronic respiratory failure with hypercapnia and hypoxia -Wore BiPAP first night, no BiPAP in 2 days. Repeat blood gas with pH 7.43, pCO2 35 today. On room air. - DuoNebs every 6 hours scheduled Sinus Bradycardia: Cardiology consulted, No plan for intervention at this time. Recommend stopping metoprolol given his bradycardia. Replace magnesium as needed. TSH normal at 2.6. Recommend event monitor at discharge. - CBC, CMP, magnesium ordered for the morning. Normal with BUN 26, creatinine 1.2, potassium 3.7. Mood disorder: Continue home medications for mood including BuSpar 10 mg twice daily, Caplyta 42 mg daily, and Paxil 20 mg nightly. Patient does have tremor, will hold precooked at this time. - Free valproic acid level ordered and still pending (send out) - Clinical presentation with patient's tremor concerning for parkinsonism secondary to medication, tremor appears to be improving somewhat over the past 24 hours -Continue depakote at half dose of 250 mg 3 times a day. Cognitive impairment Routine nursing interaction The length of stay for this patient will be 2 midnights or greater due to above diagnoses.
[2024-03-11] MEDS: PARoxetine 20MG TABLET 20 MG PO (20:50)
[2024-03-11] MEDS: METOPROLOL SUCCINATE XL 25MG TABLET 25 MG PO (20:50)
[2024-03-11] MEDS: ATORVASTATIN 40MG TABLET 40 MG PO (20:51)
[2024-03-11] MEDS: PANTOPRAZOLE 40MG TABLET 40 MG PO (20:51)
[2024-03-12] VITALS (9 sets, daily range): BP systolic 107–138; BP diastolic 63–71; PULSE 54–85; RESP 16–23; TEMP 36.4–36.9; O2SAT 92–98; BMI 29.5
[2024-03-12] MEDS: IPRATROPIUM/ALBUTEROL 3 ML NEB IH ×5 (00:03→23:22)
--- NOTE | 2024-03-12 04:23 | PC.NURSE ---
68 yo male pt. Business Development has been unable to understand pts speech throughout shift. Unable to determine orientation. Pt slept most of shift. He took meds whole without difficulty. Pt has not been OOB this shift and has been incont of B/B.
[2024-03-12] MEDS: BUDESONIDE 0.5MG/2ML NEB 0.5 MG IH ×2 (06:05→18:21)
[2024-03-12 06:51] LABS: Basophils % 0.1 % (0.1-2.0); Eosinophils % 0.7 % (0.1-12.0); Hematocrit 44.4 % (42.0-52.0); Hemoglobin 14.2 g/dL (14.1-18.0); Lymphocytes # 0.8 K/mm3 (0.7-4.5); Lymphocytes % 21.1 % (10-50); Mean Corpuscular HGB Conc 31.9 g/dL (31.8-35.4); Mean Corpuscular Hemoglobin 28.9 pg (27.0-31.2); Mean Corpuscular Volume 90.4 fl (80-94); Mean Platelet Volume 8.5 fl (7.4-10.4); Monocytes # 0.4 K/mm3 (0.1-1.0); Neutrophils # 2.4 K/mm3 (1.8-7.8); Neutrophils % 68.2 % (37.0-80.0); Platelet Count 80 K/mm3 (142-424); Red Blood Count 4.92 M/mm3 (4.60-6.20); Red Cell Distribution Width 15.2 % (11.5-17.5); White Blood Count 3.6 K/mm3 (4.8-10.8)
[2024-03-12 07:11] LABS: Albumin Level 3.4 g/dl (3.5-5.0); Chloride 105 mmol/L (98-107); Potassium 4.1 mmoL/L (3.5-5.1); Sodium 142 mmol/L (136-145)
[2024-03-12 07:14] LABS: Alanine Aminotransferase 32 U/L (12-78); Albumin/Globulin Ratio 1.3 (1.1-1.8); Alkaline Phosphatase 63 U/L (38-126); Anion Gap 12.1 mEq/L (5-15); Aspartate Amino Transferase 42 U/L (17-59); Bilirubin,Total 0.7 mg/dl (0.2-1.3); Blood Urea Nitrogen 25 mg/dl (9-20); Calcium 8.6 mg/dl (8.4-10.2); Carbon Dioxide 29 mmol/L (22.0-30.0); Creatinine Clearance Estimated 94 mL/min (50-200); Estimated Glomerular Filt Rate 66 ml/min (>60); GFR (African American) 80 ML/MIN (>60); Globulin 2.6 g/dL (1.3-3.2); Glucose 123 mg/dl (74-100)
[2024-03-12 07:16] LABS: Magnesium 2.2 mg/dl (1.6-2.3)
[2024-03-12] MEDS: EMPAGLIFLOZIN 10MG TABLET 10 MG PO (08:16)
[2024-03-12] MEDS: DIVALPROEX 250MG (Delayed-Release) TABLET 250 MG PO ×3 (08:16→20:25)
[2024-03-12] MEDS: MAGNESIUM OXIDE 400MG TABLET 400 MG PO ×2 (08:16→20:25)
[2024-03-12] MEDS: ASPIRIN 81MG CHEWABLE TABLET 81 MG PO (08:16)
[2024-03-12] MEDS: BUSPIRONE HCL 10 MG TABLET PO ×2 (08:17→20:25)
--- NOTE | 2024-03-12 17:13 | P.PN_ITS ---
Subjective *Date: 03/12/24 *Time: 17:13 Interval history: Patient continues to be very pleasant, with cognitive impairment. Denies chest pain, shortness of breath, abdominal pain. Exam Data for Last 24 hours Vital signs and Labs for Last 24 Hours: Temp Pulse Resp BP Pulse Ox O2 Del Method O2 Flow Rate 97.6 F 83 21 131/67 98 Room Air 2 03/12/24 08:00 03/12/24 10:59 03/12/24 08:00 03/12/24 08:00 03/12/24 08:00 03/12/24 15:00 03/08/24 11:51 FiO2 25 03/08/24 08:41 Laboratory Results - last 24 hr 03/12/24 06:27: WBC 3.6 L D, RBC 4.92, Hgb 14.2, Hct 44.4, MCV 90.4, MCH 28.9, MCHC 31.9, RDW 15.2, Plt Count 80 L, MPV 8.5, Neut % (Auto) 68.2, Lymph % (Auto) 21.1, Stanton % (Auto) 10.0 H, Eos % (Auto) 0.7, Baso % (Auto) 0.1, Neut # (Auto) 2.4, Lymph # (Auto) 0.8, Stanton # (Auto) 0.4, Eos # (Auto) 0.0, Baso # (Auto) 0.0, Sodium 142, Potassium 4.1, Chloride 105, Carbon Dioxide 29, Anion Gap 12.1, BUN 25 H, Creatinine 1.10, Estimated Creat Clear 94, Estimated GFR 66, Est GFR ( Amer) 80, Glucose 123 H, Calcium 8.6, Magnesium 2.2 D, Total Bilirubin 0.7, AST 42 D, ALT 32, Alkaline Phosphatase 63, Total Protein 6.0 L, Albumin 3.4 L D, Globulin 2.6, Albumin/Globulin Ratio 1.3 I & O for Last 24 hours: Intake & Output 03/09/24 03/10/24 03/11/24 03/12/24 23:59 23:59 23:59 23:59 Intake Total 1260 / 1260 1849 / 2049 930 / 1170 900 / 900 Output Total 450 / 450 0 / 0 0 / 0 0 / 0 Balance 810 / 810 1850 / 2050 930 / 1170 900 / 900 Weight 105.506 kg 108.5 kg 108.272 kg 104.598 kg Constitutional Constitutional: no acute distress Comments: Pleasantly demented. *Routine HEENT Exam Head: Present normocephalic Eye: Present EOMI and PERRL ENT: Present mucous membranes moist *Routine Neck Exam Neck: Present supple; Absent lymphadenopathy *Routine Respiratory Exam Respiratory: Present CTA bilaterally *Routine Cardiovascular Exam Cardiovascular: Present RRR *Routine Abdominal Exam Abdominal: Present soft and normoactive bowel sounds; Absent tenderness *Routine Extremities Exam Extremities: Absent cyanosis, clubbing or edema *Routine Skin Exam Skin: Present warm; Absent rash *Routine Neurological Exam Neurological: Present alert Assessment and Plan *Assessment and plan (1) Acute on chronic respiratory failure with hypoxia and hypercapnia: Status: Acute Category: Medical Code(s): J96.21 - Acute and chronic respiratory failure with hypoxia; J96.22 - Acute and chronic respiratory failure with hypercapnia (2) Cognitive impairment: Status: Acute Category: Medical Code(s): R41.89 - Other symptoms and signs involving cognitive functions and awareness (3) Sinus bradycardia: Status: Acute Category: Medical Code(s): R00.1 - Bradycardia, unspecified (4) Tremor: Status: Acute Category: Medical Code(s): R25.1 - Tremor, unspecified (5) Mood disorder: Status: Chronic Category: Medical Code(s): F39 - Unspecified mood [affective] disorder Plan This is a 69-year-old male that presented from [facility] with concerns of dyspnea and altered sensorium. He was identified with hypercapnia on his ED VBG. Responded well to BiPAP. Blood gas normal by morning. Stable on room air for over 48 hours. No further signs of confusion. Tolerating p.o. intake. Patient unfortunately not appropriate to return to his personal prison in my opinion. Will continue to have him work with therapy. Case management assisting with placement. Problems addressed as follows: Patient continues to be very pleasant, with cognitive impairment. Denies chest pain, shortness of breath, abdominal pain. Pending placement. Acute on chronic respiratory failure with hypercapnia and hypoxia -Wore BiPAP first night, no BiPAP in 3 days. Repeat blood gas with pH 7.43, pCO2 35 today. On room air. - DuoNebs every 6 hours scheduled Sinus Bradycardia: Cardiology consulted, No plan for intervention at this time. Recommend stopping metoprolol given his bradycardia. Replace magnesium as needed. TSH normal at 2.6. Recommend event monitor at discharge. - CBC, CMP, magnesium ordered for the morning. Normal with BUN 26, creatinine 1.2, potassium 3.7. Mood disorder: Continue home medications for mood including BuSpar 10 mg twice daily, Caplyta 42 mg daily, and Paxil 20 mg nightly. Patient does have tremor, will hold preco oked at this time. - Free valproic acid level ordered and still pending (send out) - Clinical presentation with patient's tremor concerning for parkinsonism secondary to medication, tremor appears to be improving somewhat over the past 24 hours -Continue depakote at half dose of 250 mg 3 times a day. Cognitive impairment Routine nursing interaction The length of stay for this patient will be 2 midnights or greater due to above diagnoses.
[2024-03-12] MEDS: METOPROLOL SUCCINATE XL 25MG TABLET 25 MG PO (20:25)
[2024-03-12] MEDS: PANTOPRAZOLE 40MG TABLET 40 MG PO (20:25)
[2024-03-12] MEDS: PARoxetine 20MG TABLET 20 MG PO (20:25)
[2024-03-12] MEDS: ATORVASTATIN 40MG TABLET 40 MG PO (20:25)
[2024-03-13 04:00] VITALS: BP 111/67; PULSE 59; RESP 18; TEMP 36.6; O2SAT 94; BMI 29.5
--- NOTE | 2024-03-13 04:35 | PC.NURSE ---
68 yo male pt is alert. Difficult to know how oriented pt is due to pts garbled speech . Pt is dependent for care and incont of B/B. Pt is tolerating regular diet. No signs of pain or increased SOA. No cough noted,
[2024-03-13 06:17] VITALS: PULSE 52; O2SAT 94
[2024-03-13] MEDS: BUDESONIDE 0.5MG/2ML NEB 0.5 MG IH (06:18)
[2024-03-13] MEDS: IPRATROPIUM/ALBUTEROL 3 ML NEB IH ×2 (06:18→11:12)
[2024-03-13 07:54] VITALS: BP 130/77; PULSE 59; RESP 19; TEMP 36.5; O2SAT 96
[2024-03-13] MEDS: BUSPIRONE HCL 10 MG TABLET PO (09:07)
[2024-03-13] MEDS: DIVALPROEX 250MG (Delayed-Release) TABLET 250 MG PO ×2 (09:07→12:35)
[2024-03-13] MEDS: ASPIRIN 81MG CHEWABLE TABLET 81 MG PO (09:07)
[2024-03-13] MEDS: EMPAGLIFLOZIN 10MG TABLET 10 MG PO (09:07)
[2024-03-13] MEDS: MAGNESIUM OXIDE 400MG TABLET 400 MG PO (09:08)
[2024-03-13 11:13] VITALS: PULSE 55
--- NOTE | 2024-03-13 12:04 | EXP.DC.SUM ---
General Admission date:: 03/07/24 HPI HPI HPI: This is a 69-year-old male that presents to [facility] emergency department from his independent living facility ([facility]) for concerns of acute dyspnea. The patient has chronic cognitive impairment. A VBG in the ED identified a pH of 7.27 with pCO2 of 71 and he required NIPPV therapy to improve his dyspnea and interactions. A CTA of the chest identified no acute findings. Hospital Course Hospital Course Hospital Course: This is a 69-year-old male that presented from [facility] with concerns of dyspnea and altered sensorium. He was identified with hypercapnia on his ED VBG. Responded well to BiPAP. Blood gas normal by morning. Stable on room air for over 48 hours. No further signs of confusion. Tolerating p.o. intake. Patient unfortunately not appropriate to return to his personal prison in my opinion. Will continue to have him work with therapy. Case management assisting with placement. Problems addressed as follows: Patient continues to be very pleasant, with cognitive impairment. Denies chest pain, shortness of breath, abdominal pain. Pending placement. Acute on chronic respiratory failure with hypercapnia and hypoxia -Wore BiPAP first night, has not needed it since. Repeat blood gas with pH 7.43, pCO2 35 essentially normal. On room air. - Also improved with Duonebs, Pulimicort. - Discharged with Anoro Ellipta. Sinus Bradycardia: Cardiology consulted, No plan for intervention at this time. Recommended stopping metoprolol given his bradycardia. TSH normal at 2.6. Recommend event monitor at discharge. Mood disorder: Continue home medications for mood including BuSpar 10 mg twice daily, Caplyta 42 mg daily, and Paxil 20 mg nightly. - Free valproic acid level ordered and still pending (send out) - Clinical presentation with patient's tremor concerning for parkinsonism secondary to medication, however improved during admission. -Continue depakote at half dose of 250 mg 3 times a day. Cognitive impairment Routine nursing interaction Exam Data for Last 24 hours Vital signs and Labs for Last 24 Hours: Temp Pulse Resp BP Pulse Ox O2 Del Method O2 Flow Rate 97.7 F 55 L 19 130/77 96 Room Air 2 03/13/24 07:54 03/13/24 11:13 03/13/24 07:54 03/13/24 07:54 03/13/24 07:54 03/13/24 11:00 03/08/24 11:51 FiO2 25 03/08/24 08:41 I & O for Last 24 hours: Intake & Output 03/10/24 03/11/24 03/12/24 03/13/24 23:59 23:59 23:59 23:59 Intake Total 1849 930 / 1170 1260 / 1260 480 / 480 Output Total 0 / 0 0 / 0 0 / 0 0 / 0 Balance 1849 930 / 1170 1260 / 1260 480 / 480 Weight 108.5 kg 108.272 kg 104.598 kg 104.598 kg DS: Diagnosis Discharge Diagnosis (1) Acute on chronic respiratory failure with hypoxia and hypercapnia: Status: Acute Code(s): J96.21 - Acute and chronic respiratory failure with hypoxia; J96.22 - Acute and chronic respiratory failure with hypercapnia (2) Cognitive impairment: Status: Acute Code(s): R41.89 - Other symptoms and signs involving cognitive functions and awareness (3) Sinus bradycardia: Status: Acute Code(s): R00.1 - Bradycardia, unspecified (4) Tremor: Status: Acute Code(s): R25.1 - Tremor, unspecified (5) Mood disorder: Status: Chronic Code(s): F39 - Unspecified mood [affective] disorder Meds Home Medications and Allergies Home Medications ?Medication ?Instructions ?Recorded ?Confirmed ?Type aspirin 81 mg chewable tablet 81 mg PO DAILY 03/07/24 03/07/24 History atorvastatin 40 mg tablet 40 mg PO HS 03/07/24 03/07/24 History buspirone 10 mg tablet 10 mg PO BID 03/07/24 03/07/24 History divalproex 500 mg tablet,delayed 500 mg PO TID 03/07/24 03/07/24 History release empagliflozin 10 mg tablet 10 mg PO DAILY 03/07/24 03/07/24 History (Jardiance) ferrous sulfate 325 mg (65 mg 325 mg PO DAILY 03/07/24 03/07/24 History iron) tablet loperamide 2 mg capsule 2 mg PO QID PRN Diarrhea 03/07/24 03/07/24 History lumateperone 42 mg capsule 42 mg PO DAILY 03/07/24 03/07/24 History (Caplyta) metoprolol succinate 25 mg 25 mg PO HS 03/07/24 03/07/24 History tablet,extended release 24 hr paroxetine HCl 20 mg tablet 20 mg PO HS 03/07/24 03/07/24 History umeclidinium 62.5 mcg-vilanterol 1 inh inhalation DAILY #60 ea 03/13/24 Rx 25 mcg/actuation powdr for inhalation (Anoro Ellipta) New Prescriptions to Start Prescriptions: umeclidinium-vilanterol [Anoro Ellipta] Sb Conklin Allergies Allergy/AdvReac Type Severity Reaction Status Date / Time No Known Allergies Allergy Verified 11/18/23 22:35 Discharge Plan Disposition Patient Disposition: [facility] Discharge Order Discharge Orders: Discharge Order (Routine); Ordered 03/13/24 Ordered By: Sb Conklin Follow up Plan Prescriptions/Medication Reconciliation: New Anoro Ellipta 62.5-25 mcg/actuation blister with device 1 inh inhalation DAILY Qty: 60 0RF Continued atorvastatin 40 mg Tablet 40 mg PO HS loperamide 2 mg Capsule 2 mg PO QID PRN (Reason: Diarrhea) divalproex 500 mg Tablet,Delayed Release (Dr/Ec) 500 mg PO TID paroxetine HCl 20 mg Tablet 20 mg PO HS ferrous sulfate 325 mg (65 mg iron) Tablet 325 mg PO DAILY buspirone 10 mg Tablet 10 mg PO BID aspirin 81 mg Tablet,Chewable 81 mg PO DAILY metoprolol succinate 25 mg Tablet Extended Release 24 Hr 25 mg PO HS Jardiance 10 mg Tablet 10 mg PO DAILY Caplyta 42 mg Capsule 42 mg PO DAILY Problem Reconciliation Problems Reviewed?: Yes Patient Discharge Instructions ACTIVITY: Continue current activity DIET: continue same diet Patient Instructions: DI for Respiratory Failure Print Language: Hungarian Providers Primary Care Provider: Brent Savage Admit Provider: Jr Barahona Attending Provider: Jr Barahona
--- NOTE | 2024-03-13 13:12 | PC.NURSE ---
12:45Respiratory therapist at bedside to apply the event monitor. Monitor to stay in place for 30 days. instructions and booklet left at bedside.
--- NOTE | 2024-03-13 13:42 | PC.NURSE ---
attempted to call ambulance twice. unable to get ahold of them. will try again later
== END 2024-03-13 15:33 | DRG 189 ==
LOC: ER 21:42 → 2ND 21:54
PROVIDERS: Family Medicine; Nurse Practitioner Acute Care; Nurse Practitioner Family; Physician Assistant; Admitting Provider Internal Medicine Adolescent Medicine; Emergency Provider Emergency Medicine; PCP Nurse Practitioner Acute Care; Visit Provider Internal Medicine Adolescent Medicine
DX: J96.21 Acute and chronic respiratory failure with hypoxia (principal); J96.22 Acute and chronic respiratory failure with hypercapnia; F39 Unspecified mood [affective] disorder; G31.84 Mild cognitive impairment of uncertain or unknown etiology; R00.1 Bradycardia, unspecified
CPT/HCPCS: 36415; 71045; 71275; 76705; 80048; 80053; 80061; 80165; 81001; 82803; 83605; 83735; 83880; 84145; 84439; 84443; 84484; 85025; 86803; 87081; 87265; 87389; 87486; 87581; 87632; 87635; 93005; 93270; 93272; 93306; 94640; 94660; 97110; 97116; 97163; 97165; 97530; 99285; J1100; J1940; J7620; Q9957; Q9967

== ENCOUNTER 2024-05-16 11:23 | Outpatient (CLI) | payer MEDICARE, OTHER, SELFPAY ==
[2024-05-16 12:05] LABS: Basophils % 0.2 % (0.1-2.0); Hematocrit 46.6 % (42.0-52.0); Hemoglobin 14.9 g/dL (14.1-18.0); Lymphocytes # 0.7 K/mm3 (0.7-4.5); Lymphocytes % 16.2 % (10-50); Mean Corpuscular Hemoglobin 28.2 pg (27.0-31.2); Mean Corpuscular Volume 88.3 fl (80-94); Mean Platelet Volume 9.6 fl (7.4-10.4); Monocytes # 0.4 K/mm3 (0.1-1.0); Monocytes % 9.6 % (1.7-9.3); Neutrophils # 3.1 K/mm3 (1.8-7.8); Neutrophils % 73.5 % (37.0-80.0); Platelet Count 96 K/mm3 (142-424); Red Blood Count 5.28 M/mm3 (4.60-6.20); Red Cell Distribution Width 13.8 % (11.5-17.5); White Blood Count 4.3 K/mm3 (4.8-10.8)
[2024-05-16 13:47] LABS: Vitamin B12 816 pg/mL (239-931)
[2024-05-16 13:49] LABS: Folate 8.58 ng/mL
== END 2024-05-16 23:59 | disposition home or self-care (01) ==
LOC: LAB 11:24
PROVIDERS: PCP Internal Medicine Adolescent Medicine; Visit Provider Internal Medicine Medical Oncology
DX: D72.819 Decreased white blood cell count, unspecified (principal)
CPT/HCPCS: 36415; 82607; 82746; 85025

== ENCOUNTER 2024-05-17 13:02 | Outpatient (CLI) | payer MEDICARE, OTHER, SELFPAY ==
--- NOTE | 2024-05-17 | US_ITS ---
FINAL REPORT CLINICAL HISTORY: DM, HLD, HTN, bradycardia, obesity, limited cognitive and mobility, bilateral claudication, bilateral skin discoloration feet. COMPARISON: None FINDINGS: ANKLE-BRACHIAL PRESSURE INDICES Pressure indices are as follows: RIGHT LOWER EXTREMITY: Ankle-brachial pressure index: 1.14 Comments: Normal LEFT LOWER EXTREMITY: Ankle-brachial pressure index: 1.19 Comments: Normal CONCLUSION: No evidence of significant obstructive peripheral vascular disease of the lower extremities Reviewed, Interpreted and Dictated by Bernadette Redmond MD Transcribed by Paula Deluna Authenticated and [facility]
== END 2024-05-17 23:59 | disposition home or self-care (01) ==
LOC: RT 13:03
PROVIDERS: PCP Nurse Practitioner Family; Visit Provider Nurse Practitioner Family
DX: I73.9 Peripheral vascular disease, unspecified (principal); M79.671 Pain in right foot; M79.672 Pain in left foot
CPT/HCPCS: 93923

== ENCOUNTER 2024-08-15 09:00 | Outpatient (CLI) | payer MEDICARE, SELFPAY ==
[2024-08-15 09:27] LABS: Basophils % 0.2 % (0.1-2.0); Hematocrit 48.1 % (42.0-52.0); Hemoglobin 15.4 g/dL (14.1-18.0); Lymphocytes # 0.6 K/mm3 (0.7-4.5); Lymphocytes % 13.6 % (10-50); Mean Corpuscular Hemoglobin 27.9 pg (27.0-31.2); Mean Corpuscular Volume 87.3 fl (80-94); Mean Platelet Volume 9.7 fl (7.4-10.4); Monocytes # 0.4 K/mm3 (0.1-1.0); Monocytes % 8.4 % (1.7-9.3); Neutrophils # 3.3 K/mm3 (1.8-7.8); Neutrophils % 76.4 % (37.0-80.0); Platelet Count 117 K/mm3 (142-424); Red Blood Count 5.51 M/mm3 (4.60-6.20); Red Cell Distribution Width 14.3 % (11.5-17.5); White Blood Count 4.3 K/mm3 (4.8-10.8)
== END 2024-08-15 23:59 | disposition home or self-care (01) ==
PROVIDERS: PCP Internal Medicine Adolescent Medicine; Visit Provider Internal Medicine Medical Oncology
DX: D72.819 Decreased white blood cell count, unspecified (principal)
CPT/HCPCS: 36415; 85025

== ENCOUNTER 2024-08-30 14:07 | Emergency (ER) | payer MEDICARE, SELFPAY ==
--- NOTE | 2024-08-30 14:06 | CT_ITS ---
FINAL REPORT TECHNIQUE: Axial images were obtained of the cervical spine by computed tomography. Coronal and sagittal reconstruction process performed. This study was performed with techniques to keep radiation doses as low as reasonably achievable (ALARA). Individualized dose reduction techniques using automated exposure control or adjustment of mA and/or kV according to the patient's size were employed. CLINICAL HISTORY: Fall hit back of head COMPARISON: None FINDINGS: CT CERVICAL SPINE: Cervical vertebrae show normal height. There is loss of height throughout the cervical intervertebral discs. Endplate sclerosis and multilevel osteophytes are noted. There is bilateral neural foraminal narrowing at the C3-4, C4-5, C5-6, and C6-7 levels, most pronounced at the C5-6 level. There is no malalignment. The facets are properly aligned. Mild calcifications are present in the carotid bifurcations bilaterally. There is soft tissue surrounding the ossicles of the right middle ear cavity best seen on image #23 of series 5. The scutum on the right is also somewhat truncated. This may represent a cholesteatoma, and clinical correlation is suggested for further evaluation. IMPRESSION: Multilevel degenerative change is present in the cervical spine as described above. No acute bony abnormality is identified. Soft tissue surrounding the ossicles of the right middle ear cavity, which may represent a cholesteatoma. Clinical correlation is suggested for further evaluation. Reviewed, Interpreted and Dictated by David Vora MD Transcribed by Paula Deluna Authenticated and [facility]
--- NOTE | 2024-08-30 14:06 | CT_ITS ---
FINAL REPORT TECHNIQUE: multiple axial CT images were performed from the foramen magnum to the vertex without enhancement. This study was performed with techniques to keep radiation doses as low as reasonably achievable (ALARA). Individualized dose reduction techniques using automated exposure control or adjustment of mA and/or kV according to the patient's size were employed. CLINICAL HISTORY: Fall hit back of head COMPARISON: 01/10/2024 FINDINGS: The ventricles are enlarged in proportion to the degree of atrophy. There is moderate diffuse atrophy. There is periventricular white matter change likely related to small vessel disease. Encephalomalacia is present in the anterior left temporal lobe, unchanged. There is no evidence of hemorrhage. No masses are identified. No extra-axial fluid is seen. Changes of chronic sinusitis are present. IMPRESSION: Moderate atrophy and chronic changes without acute process. Changes of chronic sinusitis. Reviewed, Interpreted and Dictated by David Vora MD Transcribed by Paula Deluna Authenticated and [facility]
--- NOTE | 2024-08-30 14:06 | HMH.EDGENADL ---
Discharge Plan Disposition Patient Disposition: Xfer SNF Condition: Good Prescriptions Prescriptions: No Action metoprolol succinate 25 mg tablet extended release 24 hr 25 mg PO HS Qty: 30 5RF atorvastatin 40 mg Tablet 40 mg PO HS loperamide 2 mg Capsule 2 mg PO QID PRN (Reason: Diarrhea) divalproex 500 mg Tablet,Delayed Release (Dr/Ec) 500 mg PO TID paroxetine HCl 20 mg Tablet 20 mg PO HS ferrous sulfate 325 mg (65 mg iron) Tablet 325 mg PO DAILY buspirone 10 mg Tablet 10 mg PO BID aspirin 81 mg Tablet,Chewable 81 mg PO DAILY Jardiance 10 mg Tablet 10 mg PO DAILY Caplyta 42 mg Capsule 42 mg PO DAILY Anoro Ellipta 62.5-25 mcg/actuation blister with device 1 inh inhalation DAILY Qty: 60 0RF Referrals Follow up/Referrals: Narayan Ambrocio MD [Primary Care Provider] - See instructions Activity Restrictions/Add. Instructions Additional Instructions/Restrictions: If you have any new or worsening signs or symptoms follow-up with your PCP or return to the ER as needed. Recommend taking Tylenol alternating with Motrin for symptomatic treatment of pain. I recommend your skilled nurse facility utilize strict fall precautions to prevent further injury. Clinical Impressions Clinical Impression: Fall Qualifiers: Encounter type: initial encounter Qualified Code(s): W19.XXXA - Unspecified fall, initial encounter Print Language Print Language: Bulgarian Discharge ED Provider: Jaspreet Pizano General Adult HPI <ONIEL Cabrales - Last Filed: 08/30/24 15:44> General Chief complaint: Fall Stated complaint: Unwitnessed Fall, hit head- bump & bruising Time Seen by Provider: 08/30/24 14:09 History of Present Illness HPI narrative: Patient presents for fall. Patient was found sitting in the floor by [facility] staff. They are unsure how he got there but patient denies any injury. He has had his normal functional mental baseline. Patient himself denies any headache chest pain neck pain back pain fever chills hemoptysis hematochezia melena nausea vomit diarrhea. Related Data Home Medications ?Medication ?Instructions ?Recorded ?Confirmed aspirin 81 mg chewable tablet 81 mg PO DAILY 03/07/24 08/15/24 atorvastatin 40 mg tablet 40 mg PO HS 03/07/24 08/15/24 buspirone 10 mg tablet 10 mg PO BID 03/07/24 08/15/24 divalproex 500 mg tablet,delayed 500 mg PO TID 03/07/24 08/15/24 release empagliflozin 10 mg tablet 10 mg PO DAILY 03/07/24 08/15/24 (Jardiance) ferrous sulfate 325 mg (65 mg 325 mg PO DAILY 03/07/24 08/15/24 iron) tablet loperamide 2 mg capsule 2 mg PO QID PRN Diarrhea 03/07/24 08/15/24 lumateperone 42 mg capsule 42 mg PO DAILY 03/07/24 08/15/24 (Caplyta) paroxetine HCl 20 mg tablet 20 mg PO HS 03/07/24 08/15/24 Previous Rx's ?Medication ?Instructions ?Recorded umeclidinium 62.5 mcg-vilanterol 1 inh inhalation DAILY #60 ea 03/13/24 25 mcg/actuation powdr for inhalation (Anoro Ellipta) metoprolol succinate 25 mg 25 mg PO HS #30 tabs 06/17/24 tablet,extended release 24 hr Allergies Allergy/AdvReac Type Severity Reaction Status Date / Time No Known Allergies Allergy Verified 08/15/24 09:23 [facility] <ONIEL Cabrales - Last Filed: 08/30/24 15:44> [facility] Disclaimer: The information contained in this section may have been updated after the patient was seen, as this information can be updated by other users. Medical History Acute on chronic respiratory failure with hypoxia and hypercapnia Sinus bradycardia Cognitive impairment BMI 32.0-32.9,adult Chronic hypercapnic respiratory failure Social History Smoking Status: Former smoker alcohol intake: never current occupational status: other Travel in the last 8 weeks: None Have you lived/traveled outside [place] in past 30 days?: No Contact w/someone who lives/traveled outside [place] past 30 days?: No Exposure to someone with infectious disease in past 14 days?: No Do you have a fever (greater than 100.4 F or 38 C)?: No Have you tested positive for COVID-19: No Exposed to someone with COVID-19 in past 14 days?: No Do you have a sore throat?: No Do you have a cough?: No Do you have any weakness?: No Do you have any diarrhea?: No Are you experiencing any unusual bleeding?: No Do you have any muscle aches/pain?: No Do you have any abdominal pain?: No Are you experiencing loss of taste or smell?: No Other Medical History Have you received the Flu Vaccine for this season: No Have you received the Pneumonia Vaccine: No (non-verbal) <ONIEL Cabrales - Last Filed: 08/30/24 15:44> ROS Obtained: Yes Systems reviewed as appropriate & no additional complaints except as documented Physical Exam <ONIEL Cabrales - Last Filed: 08/30/24 15:44> General General appearance: alert and in no apparent distress Respiratory Respiratory exam: Present normal lung sounds bilaterally Cardiovascular Cardiovascular exam: Present regular rate Neurological Exam Neurological exam: Present alert and oriented X3 Medical Decision Making <ONIEL Cabrales - Last Filed: 08/30/24 15:44> Medical Records Medical records reviewed: Yes I reviewed the patient's medical records. Screening: Per USPSTF and CDC recommendations, given the prevalence of disease in our region, it is our hospital?s policy to screen for HIV and viral Hepatitis for all patients aged 18 and over and those with ongoing risk factors. [place] Inquiry Pt receiving controlled substance: No Vital Signs: 08/30/24 14:10 08/30/24 14:30 08/30/24 15:30 Temperature 97.7 F Temperature Source Oral Pulse Rate 67 67 Pulse Rate [Left Radial] 72 Respiratory Rate 20 Blood Pressure 108/66 L 123/68 Blood Pressure [Right Arm] 123/80 Blood Pressure Mean 81 98 Blood Pressure Mean [Right Arm] 94 02 Sat by Pulse Oximetry 98 91 L 94 L Oxygen Delivery Method Room Air 08/30/24 15:48 Temperature 97.7 F Temperature Source Oral Pulse Rate 67 Pulse Rate [Left Radial] Respiratory Rate 18 Blood Pressure 123/68 Blood Pressure [Right Arm] Blood Pressure Mean Blood Pressure Mean [Right Arm] 02 Sat by Pulse Oximetry Oxygen Delivery Method Room Air Orders (Tests/Meds): ORDERS Category Date Time Status CT cervical spine wo con Stat Cat Scan 08/30/24 14:[address] head/brain wo con Stat Cat Scan 08/30/24 14:06 Completed Medical Decision Narrative: In summary patient is a 68-year-old male who presents to the emergency department for evaluation of a possible fall. Patient is hemodynamically stable upon arrival, afebrile. Physical exam is remarkable for no visible trauma in the primary or secondary survey including contusions abrasions hematomas bony abnormalities. Patient is at his functional baseline and appears to be pleasantly confused. He has no focal neurologic deficits. He has no C-spine tenderness to palpation has no injury to his head or tenderness on palpation. Pupils equal round reactive to light cranial nerves II through XII intact grossly to exam. Differential diagnosis includes possible fall although patient was found on the floor he was not seen falling, possible head injury or C-spine injury and patient is only on aspirin, patient has full range of motion of all 4 extremities and no focal neurologic deficits and I entertained possible vasovagal syncope however patient has no complaints and no red flags to suggest such thus that diagnosis was not pursued. Initial workup will be conducted with CT scan of the head and C-spine. Initial interventions were considered however patient has no current complaints thus deferred for now. Initial workup reviewed by me and my informal interpretation shows no acute bony abnormality or intracranial injury prior to radiology read.. Upon repeat evaluation patient remains mentating at his functional baseline. Given this patient is appropriate for discharge back to his correction facility with recommendations for stricter fall precautions and follow-up with his PCP for any continued new or worsening signs or symptoms or return to ER as needed. <Jaspreet Pizano MD - Last Filed: 09/04/24 07:16> Vital Signs: 08/30/24 14:10 08/30/24 14:30 08/30/24 15:30 Temperature 97.7 F Temperature Source Oral Pulse Rate 67 67 Pulse Rate [Left Radial] 72 Respiratory Rate 20 Blood Pressure 108/66 L 123/68 Blood Pressure [Right Arm] 123/80 Blood Pressure Mean 81 98 Blood Pressure Mean [Right Arm] 94 02 Sat by Pulse Oximetry 98 91 L 94 L Oxygen Delivery Method Room Air 08/30/24 15:48 Temperature 97.7 F Temperature Source Oral Pulse Rate 67 Pulse Rate [Left Radial] Respiratory Rate 18 Blood Pressure 123/68 Blood Pressure [Right Arm] Blood Pressure Mean Blood Pressure Mean [Right Arm] 02 Sat by Pulse Oximetry Oxygen Delivery Method Room Air Orders (Tests/Meds): ORDERS Category Date Time Status CT cervical spine wo con Stat Cat Scan 08/30/24 14:[address] head/brain wo con Stat Cat Scan 08/30/24 14:06 Completed Medical Decision Narrative: In summary patient is a 68-year-old male who presents to the emergency department for evaluation of a possible fall. Patient is hemodynamically stable upon arrival, afebrile. Physical exam is remarkable for no visible trauma in the primary or secondary survey including contusions abrasions hematomas bony abnormalities. Patient is at his functional baseline and appears to be pleasantly confused. He has no focal neurologic deficits. He has no C-spine tenderness to palpation has no injury to his head or tenderness on palpation. Pupils equal round reactive to light cranial nerves II through XII intact grossly to exam. Differential diagnosis includes possible fall although patient was found on the floor he was not seen falling, possible head injury or C-spine injury and patient is only on aspirin, patient has full range of motion of all 4 extremities and no focal neurologic deficits and I entertained possible vasovagal syncope however patient has no complaints and no red flags to suggest such thus that diagnosis was not pursued. Initial workup will be conducted with CT scan of the head and C-spine. Initial interventions were considered however patient has no current complaints thus deferred for now. Initial workup reviewed by me and my informal interpretation shows no acute bony abnormality or intracranial injury prior to radiology read.. Upon repeat evaluation patient remains mentating at his functional baseline. Given this patient is appropriate for discharge back to his correction facility with recommendations for stricter fall precautions and follow-up with his PCP for any continued new or worsening signs or symptoms or return to ER as needed. I was consulted by the [facility], and we discussed the complexity of the problems being addressed. I approved the treatment and management plan for this patient's care in the Emergency Department, thus performing a substantive portion of the medical decision making. Jaspreet Pizano MD Critical Care <ONIEL Cabrales - Last Filed: 08/30/24 15:44> Critical Care Time Critical Care Time: No
[2024-08-30 14:10] VITALS: BP 123/80; PULSE 72; RESP 20; TEMP 36.5; O2SAT 98; BMI 35.9
[2024-08-30 14:30] VITALS: BP 108/66; PULSE 67; O2SAT 91
[2024-08-30 15:30] VITALS: BP 123/68; PULSE 67; O2SAT 94
--- NOTE | 2024-08-30 15:41 | PC.NURSE ---
Called EMS to advise them of this pt being transferred back to [facility]
[2024-08-30 15:48] VITALS: BP 123/68; PULSE 67; RESP 18; TEMP 36.5; O2SAT 98
--- NOTE | 2024-08-30 15:50 | PC.NURSE ---
Called report to Mckenna malik [facility]
--- NOTE | 2024-08-30 16:07 | PC.NURSE ---
pt left with EMS.
== END 2024-08-30 16:07 ==
PROVIDERS: Emergency Provider Emergency Medicine; PCP Internal Medicine Adolescent Medicine
DX: Z04.3 Encounter for examination and observation following other accident (principal); W19.XXXA Unspecified fall, initial encounter
CPT/HCPCS: 70450; 72125; 99285

== ENCOUNTER 2024-11-14 10:05 | Outpatient (CLI) | payer MEDICARE, SELFPAY ==
[2024-11-14 10:31] LABS: Hematocrit 48.9 % (42.0-52.0); Hemoglobin 15.4 g/dL (14.1-18.0); Immature Granulocytes % 0.8 %; Mean Corpuscular HGB Conc 31.5 g/dL (31.8-35.4); Mean Corpuscular Hemoglobin 27.1 pg (27.0-31.2); Mean Corpuscular Volume 85.9 fl (80-94); Nucleated Red Blood Cells % 0 %; Platelet Count 109 K/mm3 (142-424); Red Blood Count 5.69 M/mm3 (4.60-6.20); Red Cell Distribution Width-SD 45.8 fL; White Blood Count 3.6 K/mm3 (4.8-10.8)
[2024-11-14 11:20] LABS: Albumin Level 4.3 g/dl (3.5-5.0); Chloride 101 mmol/L (98-107); Potassium 4.8 mmoL/L (3.5-5.1); Sodium 142 mmol/L (136-145)
[2024-11-14 11:23] LABS: Alanine Aminotransferase 44 U/L (12-78); Albumin/Globulin Ratio 1.5 (1.1-1.8); Alkaline Phosphatase 75 U/L (38-126); Anion Gap 19.8 mEq/L (5-15); Aspartate Amino Transferase 45 U/L (17-59); Bilirubin,Total 0.7 mg/dl (0.2-1.3); Blood Urea Nitrogen 17 mg/dl (9-20); Calcium 9.3 mg/dl (8.4-10.2); Carbon Dioxide 26 mmol/L (22.0-30.0); Creatinine,Serum 1.00 mg/dl (0.66-1.25); Estimated Glomerular Filt Rate 74 ml/min (>60); GFR (African American) 90 ML/MIN (>60); Globulin 2.8 g/dL (1.3-3.2); Glucose 211 mg/dl (74-100); Total Protein,Serum 7.1 g/dl (6.3-8.2)
== END 2024-11-14 23:59 | disposition home or self-care (01) ==
LOC: LAB 10:06
PROVIDERS: PCP Internal Medicine Adolescent Medicine; Visit Provider Internal Medicine Medical Oncology
DX: D72.819 Decreased white blood cell count, unspecified (principal)
CPT/HCPCS: 36415; 80053; 85025

== ENCOUNTER 2025-02-12 10:15 | Outpatient (CLI) | payer MEDICARE, MEDICAID, SELFPAY ==
[2025-02-12 11:03] LABS: Hematocrit 47.3 % (42.0-52.0); Hemoglobin 14.8 g/dL (14.1-18.0); Immature Granulocytes % 1.2 %; Mean Corpuscular HGB Conc 31.3 g/dL (31.8-35.4); Mean Corpuscular Hemoglobin 27.1 pg (27.0-31.2); Mean Corpuscular Volume 86.6 fl (80-94); Nucleated Red Blood Cells % 0 %; Platelet Count 110 K/mm3 (142-424); Red Blood Count 5.46 M/mm3 (4.60-6.20); Red Cell Distribution Width-SD 46.5 fL; White Blood Count 3.5 K/mm3 (4.8-10.8)
[2025-02-12 11:38] LABS: Alanine Aminotransferase 30 U/L (12-78); Albumin Level 3.8 g/dl (3.5-5.0); Albumin/Globulin Ratio 1.6 (1.1-1.8); Alkaline Phosphatase 80 U/L (38-126); Anion Gap 16.5 mEq/L (5-15); Aspartate Amino Transferase 27 U/L (17-59); Bilirubin,Total 0.6 mg/dl (0.2-1.3); Blood Urea Nitrogen 16 mg/dl (9-20); Calcium 9.3 mg/dl (8.4-10.2); Carbon Dioxide 28 mmol/L (22.0-30.0); Chloride 105 mmol/L (98-107); Creatinine,Serum 0.90 mg/dl (0.66-1.25); Estimated Glomerular Filt Rate 84 ml/min (>60); GFR (African American) 101 ML/MIN (>60); Globulin 2.4 g/dL (1.3-3.2); Glucose 202 mg/dl (74-100); Potassium 4.5 mmoL/L (3.5-5.1); Sodium 145 mmol/L (136-145); Total Protein,Serum 6.2 g/dl (6.3-8.2)
== END 2025-02-12 23:59 | disposition home or self-care (01) ==
LOC: LAB 10:17
PROVIDERS: PCP Internal Medicine Adolescent Medicine; Visit Provider Internal Medicine Medical Oncology
DX: D72.819 Decreased white blood cell count, unspecified (principal)
CPT/HCPCS: 36415; 80053; 85025

== ENCOUNTER 2025-03-24 14:02 | Emergency (ER) | payer MEDICARE, MEDICAID, SELFPAY ==
[2025-03-24] VITALS (8 sets, daily range): BP systolic 121–138; BP diastolic 55–101; PULSE 75–94; RESP 15–22; TEMP 36.7; O2SAT 94; BMI 34.4
--- NOTE | 2025-03-24 14:05 | HMH.EDGENADL ---
Discharge Plan Disposition Patient Disposition: Home, Self-Care Condition: Good Prescriptions Prescriptions: No Action buspirone 5 mg tablet 5 mg PO DAILY metformin 500 mg tablet 500 mg PO DAILY Jardiance 25 mg tablet 25 mg PO DAILY metoprolol succinate 25 mg tablet extended release 24 hr 25 mg PO HS Qty: 30 5RF atorvastatin 40 mg Tablet 40 mg PO HS loperamide 2 mg Capsule 2 mg PO QID PRN (Reason: Diarrhea) divalproex 500 mg Tablet,Delayed Release (Dr/Ec) 500 mg PO TID paroxetine HCl 20 mg Tablet 20 mg PO HS aspirin 81 mg Tablet,Chewable 81 mg PO DAILY Caplyta 42 mg Capsule 42 mg PO DAILY Anoro Ellipta 62.5-25 mcg/actuation blister with device 1 inh inhalation DAILY Qty: 60 0RF Referrals Follow up/Referrals: Narayan Ambrocio MD [Primary Care Provider, Internal Medicine] - See instructions Activity Restrictions/Add. Instructions Additional Instructions/Restrictions: Please return to the emergency department with any worsening signs or symptoms. Please follow-up with your family doctor in the upcoming days/weeks. Please continue to take all your medication as prescribed. Clinical Impressions Clinical Impression: Cognitive impairment, CHI (closed head injury) Fall Qualifiers: Encounter type: initial encounter Qualified Code(s): W19.XXXA - Unspecified fall, initial encounter Instructions Patient Instructions: How to Prevent Falls, DI for Closed Head Injury Print Language Print Language: Romansh Discharge ED Provider: Esdras Alexander General Adult HPI <ONIEL Meade - Last Filed: 03/24/25 15:18> General Chief complaint: Fall Stated complaint: Fall Time Seen by Provider: 03/24/25 14:05 Mode of Arrival: EMS Source of Information: Patient, EMS and Medical Record History of Present Illness HPI narrative: 69-year-old male presents the emergency department from half-way facility via EMS for a witnessed fall, per half-way staff and EMS patient was in his wheelchair when he fell forward , striking the head, no LOC, history of antiplatelet use with aspirin no history of anticoagulant use. Patient is GCS of 14 appears to be at baseline according to EMS and nursing report, oriented to person, disoriented to place and time. Thus review of systems was deferred. Upon medical chart review patient has past medical history consistent with COPD, hypertension, AUBREY, MDD, hyperlipidemia, T2DM, and unspecified mood/affective disorder. Initial triage vitals are unremarkable. Unsure of alcohol tobacco or drug use history. Please note that above description of symptoms, in this electronic medical record under categorization of recalled from ER triage doctor by RN are reflective of an initial nursing assessment, however, is not reflective of my full history and physical exam that was personally taken and clarified. Consequentially, this preceding description of symptoms, which may include the patient's categorized chief complaint in the EMR, do not reflect my personal clinical impression, and the ultimate description of history of present illness and patient stated complaints should be deferred to this section of the note. Unless stated otherwise or congruent with this section of the note, additional signs, symptoms, or incongruence should be interpreted as inaccurate with my clinical impression. Onset (ago): minute(s) Related Data Home Medications ?Medication ?Instructions ?Recorded ?Confirmed aspirin 81 mg chewable tablet 81 mg PO DAILY 03/07/24 02/12/25 atorvastatin 40 mg tablet 40 mg PO HS 03/07/24 02/12/25 divalproex 500 mg tablet,delayed 500 mg PO TID 03/07/24 02/12/25 release loperamide 2 mg capsule 2 mg PO QID PRN Diarrhea 03/07/24 02/12/25 lumateperone 42 mg capsule 42 mg PO DAILY 03/07/24 02/12/25 (Caplyta) paroxetine HCl 20 mg tablet 20 mg PO HS 03/07/24 02/12/25 buspirone 5 mg tablet 5 mg PO DAILY 11/14/24 02/12/25 empagliflozin 25 mg tablet 25 mg PO DAILY 11/14/24 02/12/25 (Jardiance) metformin 500 mg tablet 500 mg PO DAILY 11/14/24 02/12/25 Previous Rx's ?Medication ?Instructions ?Recorded umeclidinium 62.5 mcg-vilanterol 1 inh inhalation DAILY #60 ea 03/13/24 25 mcg/actuation powdr for inhalation (Anoro Ellipta) metoprolol succinate 25 mg 25 mg PO HS #30 tabs 06/17/24 tablet,extended release 24 hr Allergies Allergy/AdvReac Type Severity Reaction Status Date / Time No Known Allergies Allergy Verified 02/12/25 09:52 [facility] <ONIEL Meade - Last Filed: 03/24/25 15:18> [facility] Disclaimer: The information contained in this section may have been updated after the patient was seen, as this information can be updated by other users. Medical History Acute on chronic respiratory failure with hypoxia and hypercapnia Sinus bradycardia Cognitive impairment BMI 32.0-32.9,adult Chronic hypercapnic respiratory failure Family History (Updated 03/24/25 @ 14:10 by Radha Montesinos, RN) Other No significant family history Social History Smoking Status: Unknown if ever smoked alcohol intake: never current occupational status: other Travel in the last 8 weeks?: None Have you lived/traveled outside [place] in past 30 days?: No Contact w/someone who lives/traveled outside US past 30 days?: No Exposure to someone with infectious disease in past 14 days?: No Do you have a fever (greater than 100.4 F or 38 C)?: No Have you tested positive for COVID-19?: No Exposed to someone with COVID-19 in past 14 days?: No Do you have a sore throat?: No Do you have a cough?: No Do you have any weakness?: No Do you have any diarrhea?: No Are you experiencing any unusual bleeding?: No Do you have any muscle aches/pain?: No Do you have any abdominal pain?: No Are you experiencing loss of taste or smell?: No Other Medical History Have you received the Flu Vaccine for this season: No Have you received the Pneumonia Vaccine: No (non-verbal) <ONIEL Meade - Last Filed: 03/24/25 15:18> ROS Obtained: Yes All systems reviewed & no additional complaints except as documented Physical Exam <ONIEL Meade - Last Filed: 03/24/25 15:18> General General appearance: alert and in no apparent distress Head Head exam: atraumatic and normocephalic Eye Eye exam: Present PERRL and EOMI ENT ENT exam: Present mucous membranes moist Neck Neck exam: Present normal inspection Chest Chest inspection: Present normal inspection, symmetric chest wall rise and other (No obvious trauma or injury); Absent tenderness Respiratory Respiratory exam: Present normal lung sounds bilaterally; Absent respiratory distress Cardiovascular Cardiovascular exam: Present regular rate and normal rhythm Abdominal Exam Abdominal exam: Present soft; Absent tenderness, guarding, rebound or rigidity Comment: No obvious trauma or injury Extremities Exam Extremities exam: Present normal inspection and other (Moves extremities to command, no obvious traumatic open fracture or dislocation, otherwise neurovascular intact, pelvis stable to AP and lateral compression.) Back Exam Back exam: Present normal inspection and full ROM; Absent tenderness, paraspinal tenderness or vertebral tenderness Neurological Exam Neurological exam: Present alert and other (Alert oriented to person, GCS 14, answers questions/moves extremities to command, disoriented to place and time); Absent oriented X3 Psychiatric Psychiatric exam: Present normal affect Skin Skin exam: Present warm and dry Medical Decision Making <ONIEL Meade - Last Filed: 03/24/25 15:18> Medical Records Medical records reviewed: Yes I reviewed the patient's medical records. Screening: Per USPSTF and CDC recommendations, given the prevalence of disease in our region, it is our hospital?s policy to screen for HIV and viral Hepatitis for all patients aged 18 and over and those with ongoing risk factors. Wilman Inquiry Pt receiving controlled substance: No Wilman was queried for this patient: No Vital Signs: 03/24/25 14:00 03/24/25 14:00 03/24/25 14:19 Temperature 98.1 F 98.1 F Temperature Source Oral Pulse Rate 75 Pulse Rate [Right] 75 Respiratory Rate 16 16 Blood Pressure 121/55 L Blood Pressure [Right Arm] 121/55 L Blood Pressure Mean [Right Arm] 77 02 Sat by Pulse Oximetry 94 L 94 L 94 L Oxygen Delivery Method Room Air Lab Data Lab results reviewed: Yes I reviewed the patient's lab results. Lab Results 03/24/25 14:45: WBC 4.8, RBC 5.28, Hgb 14.4, Hct 46.2, MCV 87.5, MCH 27.3, MCHC 31.2 L, RDW 15.6, Plt Count 104 L, MPV 9.5, Neut % (Auto) 77.5, Lymph % (Auto) 11.3, Navarro % (Auto) 9.9 H, Eos % (Auto) 0.0 L, Baso % (Auto) 0.2, Neut # (Auto) 3.7, Lymph # (Auto) 0.5 L, Navarro # (Auto) 0.5, Eos # (Auto) 0.0, Baso # (Auto) 0.0, Sodium 138, Potassium 3.9, Chloride 98, Carbon Dioxide 32 H, Anion Gap 11.9, BUN 22 H, Creatinine 1.10, Estimated Creat Clear 96, Estimated GFR 66, Est GFR ( Amer) 80, Glucose 194 H, Calcium 9.0, Total Bilirubin 0.7, AST 26, ALT 28, Alkaline Phosphatase 79, Total Protein 7.4, Albumin 4.0, Globulin 3.4 H, Albumin/Globulin Ratio 1.2 03/24/25 14:45 03/24/25 14:45 Orders (Tests/Meds): ORDERS Category Date Time Status CT cervical spine wo con Stat Cat Scan 03/24/25 14:[address] head/brain wo con Stat Cat Scan 03/24/25 14:07 Completed Pelvis XR 1-2 views [XR pelvis 1-2V] Stat Exams 03/24/25 14:08 Completed XR chest portable Stat Exams 03/24/25 14:08 Completed Complete Blood Count Auto Diff Stat Lab 03/24/25 14:45 Results Comprehensive Metabolic Panel Stat Lab 03/24/25 14:45 Completed Medical Decision Narrative: 69-year-old male presents to the emergency department via EMS for a witnessed fall at the half-way facility, see HPI for detailed past medical history, differential diagnose include but not limited to cardiac arrhythmia, electrolyte disturbance, traumatic SDH, traumatic SAH, cervicalgia, soft tissue injury, contusion, hematoma, closed head injury, C-spine fracture among others I discussed this patient's case with the attending physician Dr. Alexander Will obtain basic laboratory studies, chest x-ray, pelvic x-ray, CT cervical spine without contrast, CT head without contrast. Esdras Alexander MD: I was consulted by the [facility], and we discussed the complexity of the problems being addressed. I approved the treatment and management plan for this patient's care in the emergency department, thus performing a substantive portion of the medical decision making. I agree with initial workup and imaging which was pending at time of transfer of care to the oncoming physician, Dr. Kumar. CBC is notable for thrombocytopenia at 104, otherwise unremarkable. I reviewed the patient's CT cervical spine without contrast on the corresponding radiologic report, no fracture or malalignment I reviewed the patient's CT head without contrast on the corresponding radiologic report, no acute intracranial abnormality or obvious mass, atrophy and chronic ischemic white matter changes as above. CMP is notable for mild BUN elevation at 22 otherwise unremarkable. Reviewed the patient's pelvic x-ray along the corresponding radiologic report, no acute bony abnormality. I reviewed the patient's chest x-ray along the corresponding radiologic report no acute abnormality. I discussed the results with the patient at bedside patient is at his neurological/behavioral baseline according to EMS and nursing at facility, trauma scans negative. Patient is remained hemodynamically stable without his time in the emergency department, no other acute symptomatology or injury. Patient cleared to be discharged back to the half-way facility for ground-level fall. Patient voiced understanding. Will call half-way for transfer back to facility. <sEdras Alexander MD - Last Filed: 03/24/25 15:22> Vital Signs: 03/24/25 14:00 03/24/25 14:00 03/24/25 14:19 Temperature 98.1 F 98.1 F Temperature Source Oral Pulse Rate 75 Pulse Rate [Right] 75 Respiratory Rate 16 16 Blood Pressure 121/55 L Blood Pressure [Right Arm] 121/55 L Blood Pressure Mean [Right Arm] 77 02 Sat by Pulse Oximetry 94 L 94 L 94 L Oxygen Delivery Method Room Air Lab Data Lab Results 03/24/25 14:45: WBC 4.8, RBC 5.28, Hgb 14.4, Hct 46.2, MCV 87.5, MCH 27.3, MCHC 31.2 L, RDW 15.6, Plt Count 104 L, MPV 9.5, Neut % (Auto) 77.5, Lymph % (Auto) 11.3, Navarro % (Auto) 9.9 H, Eos % (Auto) 0.0 L, Baso % (Auto) 0.2, Neut # (Auto) 3.7, Lymph # (Auto) 0.5 L, Navarro # (Auto) 0.5, Eos # (Auto) 0.0, Baso # (Auto) 0.0, Sodium 138, Potassium 3.9, Chloride 98, Carbon Dioxide 32 H, Anion Gap 11.9, BUN 22 H, Creatinine 1.10, Estimated Creat Clear 96, Estimated GFR 66, Est GFR ( Amer) 80, Glucose 194 H, Calcium 9.0, Total Bilirubin 0.7, AST 26, ALT 28, Alkaline Phosphatase 79, Total Protein 7.4, Albumin 4.0, Globulin 3.4 H, Albumin/Globulin Ratio 1.2 Orders (Tests/Meds): ORDERS Category Date Time Status CT cervical spine wo con Stat Cat Scan 03/24/25 14:[address] head/brain wo con Stat Cat Scan 03/24/25 14:07 Completed Pelvis XR 1-2 views [XR pelvis 1-2V] Stat Exams 03/24/25 14:08 Completed XR chest portable Stat Exams 03/24/25 14:08 Completed Complete Blood Count Auto Diff Stat Lab 03/24/25 14:45 Results Comprehensive Metabolic Panel Stat Lab 03/24/25 14:45 Completed Medical Decision Narrative: 69-year-old male presents to the emergency department via EMS for a witnessed fall at the half-way facility, see HPI for detailed past medical history, differential diagnose include but not limited to cardiac arrhythmia, electrolyte disturbance, traumatic SDH, traumatic SAH, cervicalgia, soft tissue injury, contusion, hematoma, closed head injury, C-spine fracture among others I discussed this patient's case with the attending physician Dr. Alexander Will obtain basic laboratory studies, chest x-ray, pelvic x-ray, CT cervical spine without contrast, CT head without contrast. Esdras Alexander MD: I was consulted by the [facility], and we discussed the complexity of the problems being addressed. I approved the treatment and management plan for this patient's care in the emergency department, thus performing a substantive portion of the medical decision making. I agree with initial workup and imaging which was pending at time of transfer of care to the oncoming physician, Dr. Kumar. CBC is notable for thrombocytopenia at 104, otherwise unremarkable. I reviewed the patient's CT cervical spine without contrast on the corresponding radiologic report, no fracture or malalignment I reviewed the patient's CT head without contrast on the corresponding radiologic report, no acute intracranial abnormality or obvious mass, atrophy and chronic ischemic white matter changes as above. CMP is notable for mild BUN elevation at 22 otherwise unremarkable. Reviewed the patient's pelvic x-ray along the corresponding radiologic report, no acute bony abnormality. I reviewed the patient's chest x-ray along the corresponding radiologic report no acute abnormality. I discussed the results with the patient at bedside patient is at his neurological/behavioral baseline according to EMS and nursing at facility, trauma scans negative. Patient is remained hemodynamically stable without his time in the emergency department, no other acute symptomatology or injury. Patient cleared to be discharged back to the half-way facility for ground-level fall. Patient voiced understanding. Will call half-way for transfer back to facility. Esdras Alexander MD: I was consulted by the [facility], and we discussed the complexity of the problems being addressed. I approved the treatment and management plan for this patient's care in the emergency department, thus performing a substantive portion of the medical decision making. <Shania Kumar, DO - Last Filed: 03/24/25 15:05> Vital Signs: 03/24/25 14:00 03/24/25 14:00 03/24/25 14:19 Temperature 98.1 F 98.1 F Temperature Source Oral Pulse Rate 75 Pulse Rate [Right] 75 Respiratory Rate 16 16 Blood Pressure 121/55 L Blood Pressure [Right Arm] 121/55 L Blood Pressure Mean [Right Arm] 77 02 Sat by Pulse Oximetry 94 L 94 L 94 L Oxygen Delivery Method Room Air Lab Data Lab Results 03/24/25 14:45: WBC 4.8, RBC 5.28, Hgb 14.4, Hct 46.2, MCV 87.5, MCH 27.3, MCHC 31.2 L, RDW 15.6, Plt Count 104 L, MPV 9.5, Neut % (Auto) 77.5, Lymph % (Auto) 11.3, Navarro % (Auto) 9.9 H, Eos % (Auto) 0.0 L, Baso % (Auto) 0.2, Neut # (Auto) 3.7, Lymph # (Auto) 0.5 L, Navarro # (Auto) 0.5, Eos # (Auto) 0.0, Baso # (Auto) 0.0, Sodium 138, Potassium 3.9, Chloride 98, Carbon Dioxide 32 H, Anion Gap 11.9, BUN 22 H, Creatinine 1.10, Estimated Creat Clear 96, Estimated GFR 66, Est GFR ( Amer) 80, Glucose 194 H, Calcium 9.0, Total Bilirubin 0.7, AST 26, ALT 28, Alkaline Phosphatase 79, Total Protein 7.4, Albumin 4.0, Globulin 3.4 H, Albumin/Globulin Ratio 1.2 Orders (Tests/Meds): ORDERS Category Date Time Status CT cervical spine wo con Stat Cat Scan 03/24/25 14:[address] head/brain wo con Stat Cat Scan 03/24/25 14:07 Completed Pelvis XR 1-2 views [XR pelvis 1-2V] Stat Exams 03/24/25 14:08 Completed XR chest portable Stat Exams 03/24/25 14:08 Completed Complete Blood Count Auto Diff Stat Lab 03/24/25 14:45 Results Comprehensive Metabolic Panel Stat Lab 03/24/25 14:45 Completed ECG Data Tracing #1: I reviewed this ECG and interpreted as documented below: EKG shows normal sinus rhythm at a rate of 74. Normal NE, QRS, and QTc intervals. Normal axis. No acute ST elevations or signs of acute subendocardial or transmural ischemia. Critical Care <Esdras Alexander MD - Last Filed: 03/24/25 15:22> Critical Care Time Critical Care Time: No
--- NOTE | 2025-03-24 14:07 | CT_ITS ---
FINAL REPORT TECHNIQUE: Thin section axial CT with sagittal reconstruction without contrast This study was performed with techniques to keep radiation doses as low as reasonably achievable, (ALARA). Individualized dose reduction techniques using automated exposure control or adjustment of mA and/or kV according to the patient's size were employed. CLINICAL HISTORY: Fall COMPARISON: 08/30/2024 FINDINGS: CT CERVICAL SPINE: No fracture is seen. Alignment is normal. There is advanced diffuse degenerative disc disease present. There is multilevel canal stenosis and neural narrowing noted. IMPRESSION: No fracture or malalignment Reviewed, Interpreted and Dictated by Lise Mandujano MD Transcribed by Paula Deluna Authenticated and [facility]
--- NOTE | 2025-03-24 14:07 | CT_ITS ---
FINAL REPORT TECHNIQUE: Noncontrast exam This study was performed with techniques to keep radiation doses as low as reasonably achievable, (ALARA). Individualized dose reduction techniques using automated exposure control or adjustment of mA and/or kV according to the patient's size were employed. CLINICAL HISTORY: fall, head trauma COMPARISON: 01/10/2024 FINDINGS: CT HEAD: There is moderate generalized atrophy and chronic ischemic white matter changes are noted. There is a chronic lacunar infarct in the left basal ganglia similar to the prior exam. No cortical edema is present. There is no mass or hemorrhage. Ventricles are normal. Bone windows show no skull fracture or obvious obstructive lesion. There is chronic mucosal thickening noted in the inferior left maxillary sinus. IMPRESSION: 1. No acute intracranial abnormality or obvious mass. 2. Atrophy and chronic ischemic white matter changes as above. Reviewed, Interpreted and Dictated by Lise Mandujano MD Transcribed by Paula Deluna Authenticated and [facility]
--- NOTE | 2025-03-24 14:08 | XR_ITS ---
FINAL REPORT CLINICAL HISTORY: Fall COMPARISON: None FINDINGS: SINGLE VIEW PELVIS: A single view of the pelvis was obtained. There is no acute fracture or dislocation. Vizualized joint spaces are normally aligned. Soft tissues are unremarkable. IMPRESSION: No acute bony abnormality. Reviewed, Interpreted and Dictated by Lise Mandujano MD Transcribed by Abigail Shea Authenticated and [facility]
--- NOTE | 2025-03-24 14:08 | XR_ITS ---
FINAL REPORT CLINICAL HISTORY: Fall COMPARISON: None FINDINGS: A single frontal view of the chest was obtained. No acute pulmonary opacity is present. There is no evidence of effusion or pneumothorax. Mediastinum is unremarkable. Heart size is normal. IMPRESSION: No acute abnormality. Reviewed, Interpreted and Dictated by Lise Mandujano MD Transcribed by Abigail Shea Authenticated and [facility]
--- NOTE | 2025-03-24 14:49 | ECG_ITS ---
APPROVED REPORT Exam: Resting ECG HR:74 bpm ECG Measurements Heart Rate 74 AXES SD 112 P 121 QRSd 99 QRS 212 QT 369 T 75 QTc 396 Conclusion ECTOPIC ATRIAL RHYTHM WITH SHORT SD INTERVAL WITH OCCASIONAL VENTRICULAR PREMATURE COMPLEXES POSSIBLE RIGHT VENTRICULAR HYPERTROPHY [SOME/ALL OF: PROMINENT R IN V1, LATE TRANSITION, RAD, PARISH, SSS] ANTEROSEPTAL MYOCARDIAL INFARCTION , OF INDETERMINATE AGE [40+ ms Q WAVE IN V1-V4] ABNORMAL ECG UNCONFIRMED REPORT Electronically signed by : SWETA SOLIZ, 03/25/2025 05:22:55
[2025-03-24 14:56] LABS: Hematocrit 46.2 % (42.0-52.0); Hemoglobin 14.4 g/dL (14.1-18.0); Immature Granulocytes % 1.1 %; Mean Corpuscular HGB Conc 31.2 g/dL (31.8-35.4); Mean Corpuscular Hemoglobin 27.3 pg (27.0-31.2); Mean Corpuscular Volume 87.5 fl (80-94); Nucleated Red Blood Cells % 0 %; Platelet Count 104 K/mm3 (142-424); Red Blood Count 5.28 M/mm3 (4.60-6.20); Red Cell Distribution Width-SD 49.4 fL; White Blood Count 4.8 K/mm3 (4.8-10.8)
[2025-03-24 15:07] LABS: Alanine Aminotransferase 28 U/L (12-78); Albumin Level 4.0 g/dl (3.5-5.0); Albumin/Globulin Ratio 1.2 (1.1-1.8); Alkaline Phosphatase 79 U/L (38-126); Anion Gap 11.9 mEq/L (5-15); Aspartate Amino Transferase 26 U/L (17-59); Bilirubin,Total 0.7 mg/dl (0.2-1.3); Blood Urea Nitrogen 22 mg/dl (9-20); Calcium 9.0 mg/dl (8.4-10.2); Carbon Dioxide 32 mmol/L (22.0-30.0); Chloride 98 mmol/L (98-107); Creatinine Clearance Estimated 96 mL/min (50-200); Creatinine,Serum 1.10 mg/dl (0.66-1.25); Estimated Glomerular Filt Rate 66 ml/min (>60); GFR (African American) 80 ML/MIN (>60); Globulin 3.4 g/dL (1.3-3.2); Glucose 194 mg/dl (74-100); Potassium 3.9 mmoL/L (3.5-5.1); Sodium 138 mmol/L (136-145); Total Protein,Serum 7.4 g/dl (6.3-8.2)
[2025-03-24 15:33] LABS: RBC Morphology Normal; Total Cells Counted 100
== END 2025-03-24 19:12 | disposition home or self-care (01) ==
PROVIDERS: Physician Assistant; Emergency Provider Emergency Medicine; PCP Internal Medicine Adolescent Medicine
DX: S09.90XA Unspecified injury of head, initial encounter (principal); W05.0XXA Fall from non-moving wheelchair, initial encounter
CPT/HCPCS: 70450; 71045; 72125; 72170; 80053; 85007; 85025; 93005; 99285